=== PATIENT | female | born 1960 | race Caucasian/White ===

== ENCOUNTER 2020-08-24 10:35 | Outpatient (REF) | payer OTHER, SELFPAY | END 2020-08-24 10:36 | disposition home or self-care (01) | LOC: HO.HMGCLDS 10:35 | PROVIDERS: PCP Family Medicine; Visit Provider Internal Medicine | DX: Z20.828 Contact with and (suspected) exposure to other viral communicable diseases (principal) | CPT/HCPCS: 87635 ==

== ENCOUNTER 2023-10-01 07:21 | Outpatient (AMB) | payer OTHER, SELFPAY ==
--- NOTE | 2023-10-01 07:43 | A.OFFPC_ITS ---
Vital Signs 10/01/23 07:45 Weight 174 lb 2 oz BP 130/80 Blood Pressure Location Rt brachial Position Sitting Pulse 71 Pulse Source Pulse Oximeter Pulse Oximetry (%) 98 Oxygen Delivery Method Room Air Intake Visit Reasons: New patient PE Allergies phenytoin [From Dilantin] Adverse Reaction (Mild, Verified 10/01/23 07:46) dry heaving Medication List - Last Reconciled 10/01/23 by Savannah Salgado MD acetaminophen (Tylenol Extra Strength) 500 mg PO Q6H PRN carbamazepine 200 mg PO BID lamotrigine 200 mg PO BID Tobacco use date assessed: 10/01/23 Dental Screening Dental Screen Date: 10/01/23 Did you have a dental visit in the last 12 months?: Yes Did you have a dental problem in the last 6 months where you did not have access to dental care?: No Was dental information given to patient?: Patient has dentist HPI New patient PE HPI Details Pt presents for [employer] INS[employer] PE. PFSH Surgical History (Updated 10/01/23 @ 08:26 by Savannah Salgado MD) History of total hip replacement Family History (Updated 10/01/23 @ 08:15 by Savannah Salgado MD) Mother Family history of mental disorder Father Prostate CA Social History (Updated 10/01/23 @ 08:14 by Savannah Salgado MD) Household Members Other:: , disable Housing: House Patient Tobacco Use Status: Never used Tobacco e-Cigarette/Vaping Use: Never Used service: No Current occupational status: retired Cognitive needs: No Hearing needs: No Vision needs: Yes Questionnaire PHQ-9 Over the last 2 weeks, how often have you been bothered by any of the following problems? 1. Little interest or pleasure in doing things: not at all 2. Feeling down, depressed, or hopeless: not at all 3. Trouble falling or staying asleep, or sleeping too much: not at all 4. Feeling tired or having little energy: not at all 5. Poor appetite or overeating: not at all 6. Feeling bad about yourself - or that you are a failure or have let yourself or your family down: several days 7. Trouble concentrating on things, such as reading the newspaper or watching television: not at all 8. Moving or speaking so slowly that other people could have noticed. Or the opposite - being so fidgety or restless that you have been moving around a lot more than usual: not at all 9. Thoughts that you would be better off or of hurting yourself in some way: not at all Total score: 1 Depression Screening Interpretation: Negative Depression Screening Done: Yes 61443 - PHQ-9 Billing: Yes Source: Developed by Drs. Igor Dick, Michael Blake and colleagues, with an educational alesia from [employer]. AUDIT C Alcohol Use Questionnaire (AUDIT-C) 1. How often do you have a drink containing alcohol?: Monthly or less 2. How many drinks containing alcohol do you have on a typical day when you are drinking?: 1 or 2 3. How often do you have six or more drinks on one occasion?: Never Total Score: 1 Score Reviewed/Action Taken: No SHERON-7 AMB Questionnaire SHERON-7 Date SHERON - 7 assessed: 10/01/23 Feeling nervous, anxious, or on edge: 1 = Several days Not being able to stop or control worryin = Not at all Worrying too much about different things: 1 = Several days Trouble relaxin = Not at all Being so restless that it is hard to sit still: 0 = Not at all Becoming easily annoyed or irritable: 0 = Not at all Feeling afraid as if something awful might happen: 0 = Not at all Total SHERON-7 score (0-4 normal; 5-9 mild; 10-14 moderate; 15-21 severe): 2 Source: Developed by Drs. Igor Dick, Ofelia Grayson, Michael Mitchell and colleagues, with an educational alesia from [employer]. SHERON-7 Assessment Billing SHERON-7 Assessment Tool: SHERON-7 Assessment 46532 Review of Systems Const All systems reviewed & are unremarkable except as noted in HPI and below Reports no additional complaints Eyes Reports no additional complaints ENT Reports no additional complaints Card Reports no additional complaints Resp Reports no additional complaints GI Reports no additional complaints Reports no additional complaints Musc Reports no additional complaints Physical exam (Primary Care) Vital Signs: Last Vital Signs Pulse 71 10/01/23 07:45 BP 130/80 10/01/23 07:45 Pulse Ox 98 10/01/23 07:45 Oxygen Delivery Method Room Air 10/01/23 07:45 Tobacco/Smoking Status: Tobacco use Status Tobacco use date assessed 10/01/23 10/01/23 07:54 Patient Tobacco Use Status Never used Tobacco 10/01/23 08:14 e-Cigarette/Vaping Use Never Used 10/01/23 08:14 Depression Screening Interpretation: Negative Const General: no acute distress HENMT Head: Yes normal to inspection Ears: hearing grossly normal bilaterally General nose exam: Normal external nose present Face and sinus: Yes normal facial exam Mouth: Normal oral and palatal mucosa present Teeth and gingiva: dentition normal Throat: Yes posterior oropharynx normal Eyes General: appearance normal, both eyes and all related structures Neck Neck: Yes no lymphadenopathy and Yes supple Resp Effort & Inspection: normal respiratory effort Auscultation: clear to auscultation bilaterally Cardio Rhythm: regular rhythm Heart sounds: S1 normal heart sound present and S2 normal heart sound present GI Inspection: Yes normal to inspection Palpation (GI): Soft to palpation Percussion: Yes normal to percussion Auscultation: normal bowel sounds Assessment and Plan Assessment & Plan (1) Seizure: Comment: Dr. Ramon [facility] neurology Code(s): R56.9 - Unspecified convulsions Plan: f/u with neurology (2) Osteoarthritis of knees, bilateral: Comment: f/u [facility] Code(s): M17.0 - Bilateral primary osteoarthritis of knee (3) S/P hip replacement: Comment: LEFT HIP 2022 by [facility] Code(s): Z96.649 - Presence of unspecified artificial hip joint (4) Annual physical exam: Code(s): Z00.00 - Encounter for general adult medical examination without abnormal findings Plan: well balanced diet, regular exercise , schedule mammogram, pt will schedule OV with GI for colonoscopy (5) Hx of mammogram: Comment: 2019 [facility] Code(s): Z92.89 - Personal history of other medical treatment (6) Status post VNS (vagus nerve stimulator) placement: Comment: 2010 FOR SEIZURE CONTROL Code(s): Z96.89 - Presence of other specified functional implants Orders: Orders Comprehensive [place]. Panel Fast Today E55.9 - Vitamin D deficiency, unspecified, Z00.00 - Encounter for general adult medical examination without abnormal findings Complete Blood Count Auto Diff Today E55.9 - Vitamin D deficiency, unspecified, Z00.00 - Encounter for general adult medical examination without abnormal findings Lipid Panel Today E55.9 - Vitamin D deficiency, unspecified, Z00.00 - Encounter for general adult medical examination without abnormal findings TSH reflex Free T4 Today E55.9 - Vitamin D deficiency, unspecified, Z00.00 - Encounter for general adult medical examination without abnormal findings Vitamin D 25-OH Total Today E55.9 - Vitamin D deficiency, unspecified, Z00.00 - Encounter for general adult medical examination without abnormal findings UA CC w/rflx Micro + Cult Today E55.9 - Vitamin D deficiency, unspecified, Z00.00 - Encounter for general adult medical examination without abnormal findings Coding Level of Care Code New Pt Prev Care 40-64y(76454) Diagnoses Seizure R56.9 Osteoarthritis of knees, bilateral M17.0 S/P hip replacement Z96.649 Annual physical exam Z00.00 Hx of mammogram Z92.89 Status post VNS (vagus nerve stimulator) placement Z96.89 Additional Codes SHERON-7 Assessment Billing - SHERON-7 Assessment Tool: SHERON-7 Assessment 76354 ([id number])
[2023-10-01 07:45] VITALS: BP 130/80; PULSE 71; O2SAT 98
== END 2023-10-01 08:28 | disposition home or self-care (01) ==
PROVIDERS: PCP Family Medicine; Visit Provider Internal Medicine
DX: R56.9 Unspecified convulsions (principal); M17.0 Bilateral primary osteoarthritis of knee; Z96.649 Presence of unspecified artificial hip joint; Z00.00 Encounter for general adult medical examination without abnormal findings; Z92.89 Personal history of other medical treatment; Z96.89 Presence of other specified functional implants
CPT/HCPCS: 99386

== ENCOUNTER 2023-10-01 08:23 | Outpatient (REF) | payer OTHER, SELFPAY ==
[2023-10-01 11:16] LABS: MANUAL DIFF FLAG NO
[2023-10-01 11:27] LABS: Appearance Urine Clear; Color Urine Yellow; Glucose Urine UA Negative (Negative); Leukocyte Esterase Urine Trace (Negative); Nitrite Urine Negative (Negative); PH 5.5 (5.0-9.0); Specific Gravity - Urine 1.015 (1.005-1.025); UMIC TRIGGER UACC YES; Urine Blood Negative (Negative); Urine Ketones Negative (Negative); Urine Protein Negative (Neg-Trace)
[2023-10-01 11:36] LABS: Basophils Percent Auto 0.7 % (0-2); Hematocrit 35.7 % (37.0-47.0); Hemoglobin 11.1 g/dl (12.0-16.0); Imm Gran Abs Auto 0.02 X10*3/uL (0.00-0.03); Imm Gran Pct Auto 0.5 % (0.0-0.4); Lymphocytes Absolute Auto 1.1 X10*3/uL (1.2-4.9); Lymphocytes Percent Auto 24.8 % (20-40); Mean Corpuscular HGB Conc 31.1 g/dl (31.0-35.0); Mean Corpuscular Hemoglobin 29.5 pg (27.0-33.0); Mean Corpuscular Volume 94.9 fL (80.0-98.0); Mean Platelet Volume 10.4 fL (9.4-12.3); Monocytes Absolute Auto 0.5 X10*3/uL (0.1-1.2); Neutrophils Absolute Auto 2.7 x10*3/uL (2.0-8.3); Platelet Count 372 X10*3/uL (160-400); Red Blood Count 3.76 X10*6/uL (4.20-5.50); Red Cell Distribution Width 15.9 % (11.0-16.0); White Blood Count 4.3 X10*3/uL (4.8-10.8)
[2023-10-01 11:44] LABS: Alanine Aminotransferase 12 U/L (0-31); Albumin Level 3.9 g/dL (3.5-5.0); Alkaline Phosphatase 130 U/L (39-117); Anion Gap 13 (12-20); Aspartate Amino Transferase 15 U/L (5-31); Bilirubin Total 0.2 mg/dL (0.0-1.0); Blood Urea Nitrogen 9 mg/dL (9-16); Carbon Dioxide 26 mmol/L (22-29); Chloride 107 mmol/L (96-108); Cholesterol 224 mg/dL (<200); Estimated Glomerular Filt Rate > 60; Glucose Fasting 91 mg/dL (60-99); HDL Cholesterol 77 mg/dL (>40); LDL Cholesterol Calculated 131 mg/dL (<100); Sodium 142 mmol/L (135-145); Total Protein 6.7 g/dL (6.5-8.0); Triglycerides 80 mg/dL (<150)
[2023-10-01 12:03] LABS: TSH reflex Free T4 2.57 uIU/mL (0.32-4.0); Vitamin D 25-OH Total 18.8 ng/mL (>30)
[2023-10-01 12:04] LABS: Bacteria Urine None Seen (None Seen); RBC Urine 0-2 /HPF (0-2); Squamous Epithelial Cell Urine 0-2 /HPF (0-2); WBC Urine 0-5 /HPF (0-5)
== END 2023-10-01 08:24 | disposition home or self-care (01) ==
LOC: HO.HMGCLDS 08:23
PROVIDERS: PCP Internal Medicine; Visit Provider Internal Medicine
DX: Z00.00 Encounter for general adult medical examination without abnormal findings (principal); E55.9 Vitamin D deficiency, unspecified
CPT/HCPCS: 36415; 80053; 80061; 81001; 82306; 84443; 85025

== ENCOUNTER 2024-10-24 11:22 | Outpatient (AMB) | payer OTHER, SELFPAY ==
--- NOTE | 2024-10-24 11:25 | A.OFFPC_ITS ---
Vital Signs 10/24/24 11:32 Height 5 ft Weight 179 lb BMI 35.0 BP 136/86 Blood Pressure Location Rt brachial Position Sitting Pulse 79 Pulse Source Pulse Oximeter Pulse Oximetry (%) 97 Oxygen Delivery Method Room Air Intake Visit Reasons: PE Intake Note: Pt is here today for PE. Allergies phenytoin [From Dilantin] Adverse Reaction (Mild, Verified 10/24/24 11:26) dry heaving Medication List - Last Reconciled 10/24/24 by Savannah Salgado MD acetaminophen (Tylenol Extra Strength) 500 mg PO Q6H PRN carbamazepine 200 mg PO BID lamotrigine 200 mg PO BID Tobacco use date assessed: 10/24/24 Dental Screening Dental Screen Date: 10/24/24 Did you have a dental visit in the last 12 months?: Yes Did you have a dental problem in the last 6 months where you did not have access to dental care?: No Was dental information given to patient?: Patient has dentist HPI PE HPI Details Pt presents for PE. Pt's knee replacement surgery at [facility] was cancelled by anesthesiologist because of seizure. Patient's would like to have a 2nd opinion at [facility] Surgical History History of total hip replacement Family History Mother Family history of mental disorder Father Prostate CA Social History Household Members Other:: , disable Housing: House Patient Tobacco Use Status: Never used Tobacco e-Cigarette/Vaping Use: Never Used service: No Current occupational status: retired Cognitive needs: No Hearing needs: No Vision needs: Yes Questionnaire PHQ-9 Over the last 2 weeks, how often have you been bothered by any of the following problems? 1. Little interest or pleasure in doing things: not at all 2. Feeling down, depressed, or hopeless: not at all 3. Trouble falling or staying asleep, or sleeping too much: not at all 4. Feeling tired or having little energy: not at all 5. Poor appetite or overeating: not at all 6. Feeling bad about yourself - or that you are a failure or have let yourself or your family down: not at all 7. Trouble concentrating on things, such as reading the newspaper or watching television: not at all 8. Moving or speaking so slowly that other people could have noticed. Or the opposite - being so fidgety or restless that you have been moving around a lot more than usual: not at all 9. Thoughts that you would be better off or of hurting yourself in some way: not at all Total score: 0 Depression Screening Interpretation: Negative Depression Screening Done: Yes 42588 - PHQ-9 Billing: Yes Source: Developed by Drs. Igor Dick, Ofelia Grayson, Michale Mitchell and colleagues, with an educational alesia from [employer]. Thrive Questionnaire Date Thrive assessed: 10/24/24 I am a: Patient What is your living situation today?: I have a steady place to live Within the past 12 months, did the food you bought not last and you didn't have the money to get more?: Often true Within the past 12 months, did you worry whether your food would run out before you got money to buy more?: Often true Do you have trouble paying for medicines?: No Do you have trouble getting transportation to medical appointments?: No Do you have trouble paying your heating and electricity bill?: I choose not to answer this question Do you have trouble taking care of your child, family member or friend?: I choose not to answer this question Do you have trouble with day-to-day activities such as bathing, preparing meals, shopping, managing finances, etc.?: I choose not to answer this question Are you currently unemployed and looking for a job?: Yes Are you interested in more education?: I choose not to answer this question Please select the resources that you would like help with: None Currently or been in a relationship where the following occur: I choose not to answer THRIVE Score: 2 AUDIT C Alcohol Use Questionnaire (AUDIT-C) 1. How often do you have a drink containing alcohol?: Monthly or less 2. How many drinks containing alcohol do you have on a typical day when you are drinking?: 1 or 2 3. How often do you have six or more drinks on one occasion?: Never Total Score: 1 SHERON-7 AMB Questionnaire SHERON-7 Date SHERON - 7 assessed: 10/24/24 Feeling nervous, anxious, or on edge: 0 = Not at all Not being able to stop or control worryin = Not at all Worrying too much about different things: 0 = Not at all Trouble relaxin = Not at all Being so restless that it is hard to sit still: 0 = Not at all Becoming easily annoyed or irritable: 0 = Not at all Feeling afraid as if something awful might happen: 0 = Not at all Total SHERON-7 score (0-4 normal; 5-9 mild; 10-14 moderate; 15-21 severe): 0 Source: Developed by Drs. Igor Dick, Ofelia Grayson, Michael Mitchell and colleagues, with an educational alesia from [employer]. SHERON-7 Assessment Billing SHERON-7 Assessment Tool: SHERON-7 Assessment 34349 Review of Systems Const All systems reviewed & are unremarkable except as noted in HPI and below Reports no additional complaints Eyes Reports no additional complaints ENT Reports no additional complaints Card Reports no additional complaints Resp Reports no additional complaints GI Reports no additional complaints Reports no additional complaints Physical exam (Primary Care) Vital Signs: Last Vital Signs Pulse 79 10/24/24 11:32 BP 136/86 10/24/24 11:32 Pulse Ox 97 10/24/24 11:32 Oxygen Delivery Method Room Air 10/24/24 11:32 BMI result Body Mass Index 35.0 Tobacco/Smoking Status: Tobacco use Status Tobacco use date assessed 10/24/24 10/24/24 11:27 Patient Tobacco Use Status Never used Tobacco 10/24/24 11:27 e-Cigarette/Vaping Use Never Used 10/24/24 11:27 PHQ-9: PHQ-9 Score PHQ-9: Total score 0 10/24/24 11:27 Depression Screening Interpretation: Negative Thrive Assessment: Date of Thrive Assessment Date Thrive assessed 10/24/24 10/24/24 11:27 Currently or been in a relationship where the following occur: I choose not to answer Const General: no acute distress HENMT Head: Yes normal to inspection Ears: hearing grossly normal bilaterally Face and sinus: Yes normal facial exam Throat: Yes posterior oropharynx normal Eyes General: appearance normal, both eyes and all related structures Neck Neck: Yes no lymphadenopathy and Yes supple Resp Effort & Inspection: normal respiratory effort Auscultation: clear to auscultation bilaterally Cardio Rhythm: regular rhythm Heart sounds: S1 normal heart sound present and S2 normal heart sound present GI Inspection: Yes normal to inspection Palpation (GI): Soft to palpation Percussion: Yes normal to percussion Auscultation: normal bowel sounds Coding Level of Care Code Est Pt Prev Care 40-64y(31245) Diagnoses Hx of colonoscopy Z98.890 Osteoarthritis of knees, bilateral M17.0 Seizure R56.9 Hyperlipemia E78.5 Annual physical exam Z00.00 Additional Codes SHERON-7 Assessment Billing - SHERON-7 Assessment Tool: SHERON-7 Assessment 71760 ([id number]) PHQ-9 - 93817 - PHQ-9 Billing: Yes ([id number]) Assessment & Plan Assessment & Plan (1) Hx of colonoscopy: Comment: 2018 Dr. Ferraro , q 5 yrs Code(s): Z98.890 - Other specified postprocedural states Category: Surgical Plan: due for colonoscopy (2) Osteoarthritis of knees, bilateral: Code(s): M17.0 - Bilateral primary osteoarthritis of knee Category: Medical Plan: 2 nd opinion at [facility] (3) Seizure: Comment: Dr. Ramon [facility] neurology Code(s): R56.9 - Unspecified convulsions Category: Medical Plan: refer to [facility] for 2nd opinion (4) Hyperlipemia: Code(s): E78.5 - Hyperlipidemia, unspecified Category: Medical Plan: Continue low-cholesterol diet (5) Annual physical exam: Code(s): Z00.00 - Encounter for general adult medical examination without abnormal findings Category: Medical Plan: Well-balanced diet regular physical activity discussed with the patient referred for colonoscopy and mammogram Orders: Orders Comprehensive [place]. Panel Fast Today E55.9 - Vitamin D deficiency, unspecified, E78.5 - Hyperlipidemia, unspecified, Z00.00 - Encounter for general adult medical examination without abnormal findings IRON PROFILE Today E55.9 - Vitamin D deficiency, unspecified, E78.5 - Hyperlipidemia, unspecified, Z00.00 - Encounter for general adult medical examination without abnormal findings Complete Blood Count Auto Diff Today E55.9 - Vitamin D deficiency, unspecified, E78.5 - Hyperlipidemia, unspecified, Z00.00 - Encounter for general adult medical examination without abnormal findings Lipid Panel Today E55.9 - Vitamin D deficiency, unspecified, E78.5 - Hyperlipidemia, unspecified, Z00.00 - Encounter for general adult medical examination without abnormal findings TSH reflex Free T4 Today E55.9 - Vitamin D deficiency, unspecified, E78.5 - Hyperlipidemia, unspecified, Z00.00 - Encounter for general adult medical examination without abnormal findings Vitamin D 25-OH Total Today E55.9 - Vitamin D deficiency, unspecified, E78.5 - Hyperlipidemia, unspecified, Z00.00 - Encounter for general adult medical examin ation without abnormal findings Vitamin B12 and Folate Today E55.9 - Vitamin D deficiency, unspecified, E78.5 - Hyperlipidemia, unspecified, Z00.00 - Encounter for general adult medical examination without abnormal findings MM screening mammo BI Today E55.9 - Vitamin D deficiency, unspecified, E78.5 - Hyperlipidemia, unspecified, Z00.00 - Encounter for general adult medical examination without abnormal findings, Z12.31 - Encounter for screening mammogram for malignant neoplasm of breast Referrals Gastroenterology Referral Z00.00 - Encounter for general adult medical examination without abnormal findings, Z98.890 - Other specified postprocedural states Orthopedics Referral M17.0 - Bilateral primary osteoarthritis of knee Neurology Referral R56.9 - Unspecified convulsions, Z96.89 - Presence of other specified functional implants
[2024-10-24 11:32] VITALS: BP 136/86; PULSE 79; O2SAT 97; BMI 35.0
--- OUTSIDE RECORDS SUMMARY | 2024-10-29 07:55 | XMS_ITS | Continuity of Care Document ---
Author Organization Pre [facility] Address [address] [place] [address]- Care Team Providers Care Missile And Missile Checkout Technician Name Role Phone Savannah Salgado MD Primary Care Physician [facility] [id number] Date(s): 10/01/24 - 10/08/24 Pre Op [facility] [address] [place] [id number] Attending Physician: Deni MOLINA, Dangelo Carrillo Referring Physician: Jennifer MOLINA, Kaushik Barnett Encounter Type: Office Visit Allergies, Adverse Reactions, Alerts Substance Criticality Severity Reaction Reaction Severity Status gabapentin blurry vision, slurred speech Active Dilantin vomiting Active Immunizations Given and Recorded Vaccine Date Status Refusal Reason influenza virus vaccine, inactivated 1 12/01/21 Gi vinod influenza virus vaccine, inactivated 2 09/13/17 Gi vinod influenza virus vaccine, inactivated 09/21/16 Give n SARS-CoV-2 (COVID-19) mRNA-1273 vaccine 11/16/21 R ecorded SARS-CoV-2 (COVID-19) Ad26 vaccine 02/21/21 Record ed Influenza Virus Vaccine (oldterm) 09/01/20 Recorde d tetanus/diphtheria/pertussis, acel(Tdap) 02/24/16 Given 1Result Comment: [facility]: [id number] 2Result Comment: [09/13/2017] [facility]# [id number] Medications acetaminophen 325 mg oral tablet 650 mg, By Mouth, Every 6 hours, may take OTC not to exceed 3000 mg/day, Refills 0, Maintenance, 09/05/23 8:34:00 AM EDT, Partial fill upon patient request if the prescription is for a schedule II opioid drug. Start Date: 09/05/23 Status: Ordered Repeat number: 1 Aleve Back and Muscle Pain 220 mg oral tablet 1 tablet = 220 mg, By Mouth, Every 8 hours, PRN as needed for pain, # 40 tablet, 0 Refills, Maintenance, 10/01/24 9:25:00 AM EST, Tablet, Partial fill upon patient request if the prescription is for a schedule II opioid drug. Start Date: 10/01/24 Status: Ordered Quantity: 40.0 Unit: tablet Repeat number: 1 carBAMazepine 200 mg oral tablet, extended release 1 tablet, By Mouth, 2 times a day, # 180 tablet, 3 Refills, Maintenance, 10/07/24 11:00:00 AM EST, [id number], 156, cm, 10/01/24 13:23:00 EST, Height, 80, kg, 10/07/24 6:35:00 EST, Dry Weight Start Date: 10/07/24 Status: Ordered Quantity: 180.0 Unit: tablet Repeat number: 1 diazePAM 20 mg/dose nasal spray 1 sprays, Nares, Both, Once, may repeat once after at least 4 hours if needed, # 2 each, 4 Refills,Soft Stop, 07/09/23 10:36:00 AM EDT, [place], [id number], Partial fill upon patient request ifthe prescription is for a schedule II opioid drug., 154.6, cm, 07/09/23 10:07:00 EDT, Height Start Date: 07/09/23 Status: Ordered Quantity: 2.0 Unit: each Repeat number: 5 lamotrigine 200 mg oral tablet 1 tablet, By Mouth, 2 times a day, # 180 tablet, 3 Refills, Maintenance, 08/05/24 3:18:00 PM EDT, [id number], 156, cm, 09/05/23 11:24:00 EDT, Height, 78, kg, 09/04/23 17:38:00 EDT, Dry Weight Start Date: 08/05/24 Status: Ordered Quantity: 180.0 Unit: tablet Repeat number: 1 Problem List Condition Confirmation Course Effective Dates Status H ealth Status Informant Bunion of left foot Confirmed Active Hemorrhoids Confirmed Active Left hip pain Confirmed Active Obese class I Confirmed Active Class 1 obesity with body mass index (BMI) of 32.0 to 32.9 in adult Confirmed Active Osteoarthritis of left hip Confirmed Active Osteoarthritis of right knee Confirmed Active Refractory epilepsy Confirmed Active Vital Signs Most recent to oldest [Reference Range]: 1 Height 156 cm (10/01/24 9:14 AM) Weight 80.3 kg (10/01/24 9:14 AM) Oxygen Saturation [94-100 %] 99 % (10/01/24 9:14 AM) Pulse Rate [55-90 bpm] 80 bpm (10/01/24 9:14 AM) Body Mass Index [18.5-24.99 kg/m2] 33 kg /m2 *>HHI* (10/01/24 9:14 AM) Blood Pressure [90-138/55-84 mm Hg] 140/ 74mm Hg *H* (10/01/24 9:14 AM) Respiratory Rate [16-30 br/min] 16 br/mi n (10/01/24 9:14 AM) Blood pressure sites Arm, left (10/01/24 9:14 AM) Weight Obtained Via Standing scale (10/01/24 9:14 AM) Social History Social History Type Response Smoking Status Never (less than 100 in lifetime) entered on: 08/24/23 Sex Sex Representation Female (finding) EKG study * Event Display: ECG 12-Lead Authored Date: Please click on pdf link to open report * Event Display: ECG 12-Lead Authored Date: Ventricular Rate: 67 BPM Atrial Rate: 67 BPM P-R Interval: 134 ms QRS Duration: 80 ms Q-T Interval: 382 ms QTC Calculation(Bazett): 403 ms P Muir: 52 degrees R Muir: 27 degrees T Muir: 47 degrees Normal sinus rhythm Normal ECG When compared with ECG of 24-AUG-2023 10:25, No significant change was found Confirmed by ANGEL MOONEY MD ([id number]) on 10/01/2024 10:45:23 AM [place]: ANGEL MOONEY MD Patient Care team information Care Team Personnel Name: Savannah Salgado MD Position: [facility] Physician - Primary Care Member Role: PCP Address: [address] [place] [address]- Telecom: Name: Telma Rahman RN Position: [facility] RN Member Role: Primary Care Nurse Name: Crescencio Weller RN Position: [facility] RN Member Role: Primary Care Nurse Care Team Related Persons Name: JADIEL CHADWICK Name: SANJUANITA LUBIN Insurance Providers Guarantor name: JOSUE CHADWICK Health Plan Information #: 1 Payer: [facility] Member Number: [id number] Policy Number: NA Group Number: [id number] Health Plan Information #: 2 Payer: [facility] Member Number: [id number] Policy Number: NA Group Number: [id number]
--- OUTSIDE RECORDS SUMMARY | 2024-10-29 07:55 | XMS_ITS | Continuity of Care Document ---
Author Organization [facility] y [address], [address] [place] [address]- Care Team Providers Care Wax Engraver Name Role Phone Savannah Salgado MD Primary Care Physician Encounter [facility] [place] Date(s): 10/01/24 - 10/08/24 [facility] [address] [place] [address] Drive [address] [place], [place] [address] Attending Physician: Igor Smith MD Referring Physician: Ángel Ramon MD Encounter Type: Office Visit Allergies, Adverse Reactions, [...] d tetanus/diphtheria/pertussis, acel(Tdap) 02/24/16 Given 1Result Comment: [facility]: [id number] 2Result Comment: [09/13/2017] [facility]# [id number] Medications acetaminophen 325 mg oral tablet 650 [...] 3 Refills, Maintenance, 10/07/24 11:00:00 AM EST, [facility], 156, cm, 10/01/24 13:23:00 EST, Height, 80, kg, 10/07/24 6:35:00 EST, Dry Weight Start Date: 10/07/24 Status: Ordered Quantity: 180.0 Unit: tablet Repeat number: 1 diazePAM 20 mg/dose nasal spray 1 sprays, Nares, Both, Once, may repeat once after at least 4 hours if needed, # 2 each, 4 Refills,Soft Stop, 07/09/23 10:36:00 AM EDT, [place], [facility]/pharmacy #[id number], Partial fill upon patient request ifthe prescription is for a schedule II opioid drug., 154.6, cm, 07/09/23 10:07:00 EDT, Height Start Date: 07/09/23 Status: Ordered Quantity: 2.0 Unit: each Repeat number: 5 lamotrigine 200 mg oral tablet 1 tablet, By Mouth, 2 times a day, # 180 tablet, 3 Refills, Maintenance, 08/05/24 3:18:00 PM EDT, [facility], 156, cm, 09/05/23 11:24:00 EDT, Height, 78, [...] [Reference Range]: 1 Height 156 cm (10/01/24 1:23 PM) Weight 80.3 kg (10/01/24 1:23 PM) Body Mass Index [18.5-24.99 kg/m2] 33 kg /m2 *>HHI* (10/01/24 1:23 PM) Social History Social History Type Response Smoking Status Never (less than 100 in lifetime) entered on: 08/24/23 Sex Sex Representation Female (finding) Patient Care team information Care Team Personnel Name: Savannah Salgado MD Position: [facility] Physician - Primary Care Member Role: PCP Address: [address] [place] [address] Telecom: Name: Telma Rahman RN Position: [facility] RN Member Role: Primary Care Nurse Name: Crescencio Weller RN Position: [facility] RN Member Role: Primary Care Nurse Care Team Related Persons Name: JADIEL CHADWICK Name: SANJUANITA LUBIN Insurance Providers Guarantor name: JOSUE FARRUKH Health Plan Information #: 1 Payer: [facility] Member Number: [id number] Policy Number: NA Group Number: [id number] Health Plan Information #: 2 Payer: [facility] Member Number: [id number] Policy Number: NA Group Number: NA
--- OUTSIDE RECORDS SUMMARY | 2024-10-29 07:55 | XMS_ITS | Continuity of Care Document ---
Author Organization [facility] Address [address] [place] [address]- Care Team Providers Care Technical Administrator Name Role Phone Savannah Salgado MD Primary Care Physician [place] [facility] [place] 09/23/24 - 10/23/[address] [address]- Attending Physician: Elva Alvarez Admitting Physician: Elva Alvarez Referring Physician: AdmtrElva Encounter Type: Triage Allergies, Adverse Reactions, Alerts Substance Criticality Severity [...] d tetanus/diphtheria/pertussis, acel(Tdap) 02/24/16 Given 1Result Comment: [facility]: [id number] 2Result Comment: [09/13/2017] [facility]# [id number] Medications acetaminophen 325 mg oral tablet 650 [...] 3 Refills, Maintenance, 10/07/24 11:00:00 AM EST, [facility], 156, cm, 10/01/24 13:23:00 EST, Height, 80, kg, 10/07/24 6:35:00 EST, Dry Weight Start Date: 10/07/24 Status: Ordered Quantity: 180.0 Unit: tablet Repeat number: 1 diazePAM 20 mg/dose nasal spray 1 sprays, Nares, Both, Once, may repeat once after at least 4 hours if needed, # 2 each, 4 Refills,Soft Stop, 07/09/23 10:36:00 AM EDT, [place], [facility]/pharmacy #[id number], Partial fill upon patient request ifthe prescription is for a schedule II opioid drug., 154.6, cm, 07/09/23 10:07:00 EDT, Height Start Date: 07/09/23 Status: Ordered Quantity: 2.0 Unit: each Repeat number: 5 lamotrigine 200 mg oral tablet 1 tablet, By Mouth, 2 times a day, # 180 tablet, 3 Refills, Maintenance, 08/05/24 3:18:00 PM EDT, [facility], 156, cm, 09/05/23 11:24:00 EDT, Height, 78, [...] knee Confirmed Active Refractory epilepsy Confirmed Active Social History Social History Type Response Smoking Status Never (less than 100 in lifetime) entered on: 08/24/23 Sex Sex Representation Female (finding) Patient Care team information Care Team Personnel Name: Savannah Salgado MD Position: [facility] Physician - Primary Care Member Role: PCP Address: [place] [address]- Telecom: Name: Telma Rahman RN Position: [facility] RN Member Role: Primary Care Nurse Name: Crescencio Weller RN Position: [facility] RN Member Role: Primary Care Nurse Care Team Related Persons Name: JADIEL CHADWICK Name: SANJUANITA LUBIN Insurance Providers Guarantor name: JOSUE CHADWICK Health Plan Information #: 1 Payer: [facility] Member Number: NA Policy Number: NA Group Number: NA
--- OUTSIDE RECORDS SUMMARY | 2024-10-29 07:55 | XMS_ITS | Patient Health Record ---
Author Organization [facility] Address [address] [place] [address] Support Name Relationship Address Phone JADIEL CHADWICK Emergency Contact [address] [place]KKI Hayes [phone] JOSUE CHADWICK Guarantor Unknown Care Team Providers Care Occupational Hygienist Name Role Phone Savannah Salgado MD Primary Care Provider Igor Post [phone] ALLERGIES Allergen (clinical drug ingredient) Drug/Non Drug Allergy documented on EMR Reaction Allergy Type Onset Date Status phenytoin Dilantin Unknown Drug Allergy Active REASON FOR REFERRAL No Information MEDICATIONS Medication SIG (Take, Route, Fr equency, Duration) Notes Start Date End Date Status lamoTRIgine Active Carbatrol 200mg bid Acti ve MoviPrep 100 GM as directed Orally a s directed for 1 dose 08/12/2013 Active SOCIAL HISTORY Sex Assigned At : Social History Observation Description Sex Assigned At Unknown PROBLEMS Problem Type ICD Code Onset Dates Problem Status W/U Status Risk SNOMED Code Notes Problem Blood in stool (578.1) Active confirmed Blood in stool (293300483) Problem Constipation (564.00) Active confirmed Constipation (08639355) Problem Heme positive stool (792.1) Active confirmed Feces contents abnormal (793195010) PLAN OF TREATMENT Future Test Test Name Order Date COLONOSCOPY 08/12/2013 Next Appt Details Provider Name:Igor Ferraro , 02/17/2025 01:20:00 PM, [address], [address], [place], [address], Insurance Providers Payer Name Payer Address Payer Phone Subscriber Number Group Number Insured Name Patient Relationship to Insured Coverage Start Date Coverage End Date [employer] ([employer]) [address] [place] [id number] JOSUE CHADWICK Self - patient is the insured MEDICAL (GENERAL) HISTORY Medical History History ICD Code Denies UT,DM,CVA,Lung disease,renal dise ase Epilepsy--still active-gener alized or partial seizures---once or twice a month Surgical History Surgery Date(Month/Year) brain surgery--at [facility]-put electrodes in the brain to do tests for the epilepsy 06/2011 Surgery for seizures-Vagus nerve stimula tor in 2000
--- OUTSIDE RECORDS SUMMARY | 2024-10-29 07:55 | XMS_ITS | Continuity of Care Document ---
Author Organization [facility] Address [address] [place] [address], [address] Floor, [address] [place] [address]- Care Team Providers Care Director Of Institutional Sales Name Role Phone Savannah Salgado MD [id number] [address] [facility] [address] Floor, [address] [place] [address] Attending Physician: Ángel Ramon MD Admitting Physician: Ángel Ramon MD Encounter Type: Pre-OutPatient One Time Allergies, Adverse Reactions, Alerts Substance Criticality Severity [...] tetanus/diphtheria/pertussis, acel(Tdap) 02/24/16 Given 1Result Comment: [facility]: [id number] 2Result Comment: [09/13/2017] [facility]# [id number] Medications acetaminophen 325 mg oral tablet 650 [...] day, # 180 tablet, 3 Refills, Maintenance, 07/09/23 10:45:00 AM EDT, [facility]/pharmacy #[id number], 154.6, cm, 07/09/23 10:07:00 EDT, Height Start Date: 07/09/23 Stop Date: 07/03/24 Status: Ordered Quantity: 180.0 Unit: tablet Repeat number: 4 diazePAM 20 mg/dose nasal spray 1 sprays, Nares, Both, Once, may repeat once after at least 4 hours if needed, # 2 each, 4 Refills,Soft Stop, 07/09/23 10:36:00 AM EDT, [place], [facility]/pharmacy #[id number], Partial fill upon patient request ifthe prescription is for a schedule II opioid drug., 154.6, cm, 07/09/23 10:07:00 EDT, Height Start Date: 07/09/23 Status: Ordered Quantity: 2.0 Unit: each Repeat number: 5 lamotrigine 200 mg oral tablet 1 tablet, By Mouth, 2 times a day, # 180 tablet, 3 Refills, Maintenance, 08/05/24 3:18:00 PM EDT, [facility], 156, cm, 09/05/23 11:24:00 EDT, Height, 78, [...] Team Personnel Name: Savannah Salgado MD Position: [facility] Physician - Primary Care Member Role: PCP Address: [facility] [address] Telecom: Name: Telma Rahman RN Position: [facility] RN Member Role: Primary Care Nurse Name: Crescencio Weller RN Position: [facility] RN Member Role: Primary Care Nurse Care Team Related Persons Name: JADIEL CHADWICK Name: SANJUANITA LUBIN Insurance Providers Guarantor name: JOSUE CHADWICK Health Plan Information #: 1 Payer: [facility] Member Number: [id number] Policy Number: NA Group Number: [id number] Health Plan Information #: 2 Payer: [facility] Member Number: [id number] Policy Number: NA Group Number: NA
--- OUTSIDE RECORDS SUMMARY | 2024-10-29 07:55 | XMS_ITS | Data Portability ---
Author Organization [place] - Mirza Laureano [facility], [facility] Address [address] [place] [address] Care Team Providers Care Woodwind Reeds Cutter Name Role Phone VIKI NG Primary Care Provider [phone] Assessment Encounter Date Assessment Date Assessment LastModified by Organization Details LastModified Time 08/04/2024 08/04/2024 Chief complaint: Right knee pain. History of present illness: The patient is a 63-year-old female presenting with a chief complaint of right knee pain. The patient has tried rest, NSAIDS, physical therapy, corticosteroid injection, exercise, and activity modification but continues to have pain. Physical examination: The patient is in no acute distress. She is alert and oriented x3. She has nonlabored breathing. Her hearing is intact to spoken word. Her extra-ocular motion is intact. Right lower extremity - Alignment: varus Effusion: moderate Range of motion: 5-105 Varus/valgus stress testing: moderate laxity Crepitus: slight Skin is intact without erythema, induration, or ecchymosis. The patient has full painless range of motion at the ipsilateral hip. Sensation is intact to light touch over the dorsum of the foot, in the first webspace, and over the plantar aspect of the foot. The patient has 5/5 strength with plantarflexion of the ankle, dorsiflexion of the ankle, plantarflexion of the great toe, and dorsiflexion of the great toe. The foot is warm and well-perfused with brisk capillary refill. There is a 2+ dorsalis pedis pulse. Radiographs: 4 views of the right knee including bilateral knee AP, bilateral knee Perez, right knee lateral, and bilateral knee merchant views were obtained and evaluated in the office today. X-rays demonstrate that the patient has end-stage osteoarthritis of the right knee with joint space narrowing, subchondral sclerosis, and osteophyte formation. There is no evidence of fracture. Assessment and Plan: The patient is a 63-year-old female presenting with a chief complaint of right knee pain. She demonstrates end-stage osteoarthritis of her right knee on radiographs. At this point, the patient has failed non-operative treatment of her right knee osteoarthritis. The patient has tried NSAIDs, rest, exercise, physical therapy, corticosteroid injection, and activity modification but continues to have worsening pain for greater than 3 months. A thorough discussion was had with the patient regarding both nonsurgical and surgical interventions for treatment of right knee osteoarthritis. Since the patient has experienced worsening pain despite conservative treatment, the patient wished to proceed with surgery. The nature of knee replacement surgery, the potential risks, benefits, complications, the magnitude of the surgery, the intensity of postoperative recovery, and the elective nature of a right total knee arthroplasty were discussed at length. Risks and complications discussed included postoperative stiffness, infection requiring further surgery or potential removal of implants, persistent infection requiring possible amputation, wound healing complications, instability, dislocation, need for additional surgery or revision arthroplasty, aseptic loosening, extensor mechanism disruption, implant failure, injury to nerve, foot drop, numbness, numbness over the lateral knee, injury to blood vessel, bleeding, hematoma, need for transfusion, fracture, heart attack, stroke, deep vein thrombosis, pulmonary embolism, and even intraoperative or postoperative . Despite these risks, the patient still wished to proceed with surgery. The patient was instructed that I am happy to meet again at any time in order to review any additional questions or concerns the patient might have. Since the patient wishes to proceed, we will schedule the patient for a right total knee arthroplasty. The patient will require clearance from a medical doctor prior to surgery. The next planned follow-up is at the preoperative history and physical appointment. [email or web address] Not available 08/04/2024 11:37:13 09/08/2024 09/08/2024 Assessment: Patient presents with symptoms that are consistent with knee OA. Demonstrates good understanding of home program, post-operative mechanics for gait and stairs, and expectations following surgery. Plan: Discharge patient to knee [facility]. Follow up with patient post-operatively. [email or web address] Not available 09/08/2024 08:22:17 10/02/2024 10/02/2024 PRIMARY DIAGNOSI S: Osteoarthritis of the right knee. REASON FOR ADMISSION: The patient is being admitted for right total knee arthroplasty by Dr. Rodriguez on 10/07/2024. HISTORY OF PRESENT ILLNESS: Ms. Rosales is a very pleasant 63-year-old female accompanied today with her with complaints of right sided knee pain. She is well known to the practice as she previously had her left hip replaced by Dr. Rodriguez in 08/2023. She is very happy with the outcome of her left hip and now reports increasing pain to her right knee. The patient has a known longstanding history of right knee osteoarthritis, which has failed conservative management and she is now ready to pursue a right total knee by Dr. Rodriguez on 10/07/2024. PAST MEDICAL HISTORY: 1. Osteoarthritis of the right knee. 2. Seizure disorder. She has refractory epilepsy, status post vagus nerve stimulator. She states the majority of her seizures happen at night. She states her last one was about a month ago. Signs of her seizure include teeth smacking, tongue and arm flailing, occasionally she will have stiff arms and stiff legs, sometimes she sleep walks. The seizure usually lasts about 3 minutes. Things that bring her seizures on are stressors such as feeling tired. Flashing lights or pain has also been an issue in the past. She is currently well managed on Lamictal and carbamazepine. The patient's reports that when she is coming to, it is helpful for her to be asked the same 3 questions which is what is her 's name, where does she live and what is his favorite hockey team. 3. Obesity with a BMI of 33.4. 4. Hemorrhoids. 5. Bunions of the left foot. 6. 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 PAST SURGICAL HISTORY: 1. She had a left total hip by Dr. Rodriguez in 08/2023. She was discharged home on postoperative day #1 without any issues. 2. Vagal nerve stimulator implantation. 3. Craniotomy in 2010. MEDICATIONS: Current list of medications includes 1. Carbamazepine 200 mg twice a day, which she will take prior to arrival to the hospital. 2. Lamictal 200 mg twice a day, which she will take prior to arrival to the hospital. ALLERGIES: DILANTIN CAUSES VOMITING AND DRY HEAVES. GABAPENTIN CAUSES BLURRED VISION AND SLURRED SPEECH. SOCIAL HISTORY: She is . Her , Jamie is here with her today. She reports a very, very rare alcoholic beverage. Denies any tobacco or illicit drug use. PHYSICIANS: The patient's primary care physician is Almaz Barrios NP and her neurologist is Dr. Ramon. REVIEW OF SYSTEMS: The patient's 12-point review of systems is negative except as in HPI and past medical history. PHYSICAL EXAMINATION: VITAL SIGNS: Weight is 178 pounds. GENERAL: Alert and oriented. Normal insight, affect, and grooming. SKIN: Intact without rash or lesions. Nails without clubbing or cyanosis. HEENT: Normocephalic. Conjunctivae pink. Sclerae are anicteric. CHEST: Lungs are clear to auscultation bilaterally and breathing is unlabored. CARDIOVASCULAR: Heart has a regular rate and rhythm with normal S1, S2. No murmurs, rubs or gallops appreciated. ABDOMEN: Soft, nontender. EXTREMITIES: Lower extremities, right knee skin is intact without erythema, induration, or ecchymosis. She has a varus alignment with moderate effusion. Range of motion is 5-105. She has moderate laxity with varus/valgus stress testing. Calves are supple and nontender. Ankle motion is satisfactory. Pedal pulses palpable bilaterally and skin about the feet is intact. PREOPERATIVE DIAGNOSTIC DATA: Orthopedic x-rays demonstrate end-stage osteoarthritis of the right knee. There is kbfr-dy-dvyw articulation, subchondral sclerosis and osteophyte formation. EKG reads sinus rhythm at 67 beats per minute. LABORATORY DATA: CBC, PTT, INR, BUN, creatinine and electrolytes all within normal limits. Hemoglobin A1c is 5.3. ASSESSMENT AND PLAN: The patient has advanced osteoarthritis of the right knee and is now scheduled for right total knee arthroplasty by Dr. Rodriguez on 10/07/2024. She was seen by the med consult program for preoperative clearance, who considered the patient's risk for major adverse cardiac events as low. She is also considered a low pulmonary risk. Due to her seizure disorder, triggers should be avoided such as strong lights and good pain control. She should take her seizure medicines prior to surgery. Due to her implanted vagal nerve stimulator, intraoperative electrocautery safety protocol is recommended. The patient will receive IV TXA and be placed on aspirin postoperatively for DVT prophylaxis. Discharge plans will be to home with services. The patient is not a candidate for same day discharge. She will not receive tramadol due to her cocurrent use of carbamazepine for seizure disorder. She has been counseled regarding the risks and benefits of the proposed procedure. Her questions have been answered and she acknowledges understanding. The patient wishes to proceed with surgery. CONTACTS: Her , Jamie with phone number [phone]. [email or web address] Not available 10/02/2024 12:36:09 Plan of Treatment Reminders Order Date Submit Date Provider Last Modified By Organization Details Last Modified Time Details Appointments None recorded. Lab None recorded. Referral None recorded. Procedures None recorded. Surgeries None recorded. Imaging XR, knee, 4 or more view - 205 rt knee 4v 2023 024 Myranda [facility], [address], [facility] [address], [place], [address], 08:27:54 Medication Orders aspirin 325 mg tablet,margarita yed release 2023 024 jose [email or web address] [id number], [address] [facility] [place], [address], 4 12:03:30 Colace 100 mg capsule 2023 024 jose luis [id number], [address] [facility] [place], [address], 4 12:03:30 Celebrex 200 mg capsule 2023 024 jose luis [id number], [address] [facility], [address], 4 12:03:30 pantoprazol e 40 mg tablet,margarita yed release 2023 024 jose luis [id number], [address] [facility], [address], 4 12:03:30 Patient Targets Encounter Date Encounter Id Patient Goals Patient Target Last Modified By Organization Details Last Modified Time 09/08/2024 [id number] [facility] Compliance [id number] Not available Not available Not available Patient InstructionsNo instructions recorded. Reason for Referral None Reported. Results Created Date Observation Date Name Description Value Unit Range Abnormal Flag Note LastModifiedBy Organization Detail LastModifiedTime 08/04/20 24 08/04/2024 XR, knee, 4 or more view http:/ [email or web address] ?Encry pted=s hAaTro YD8dLq bEUv6g %2BXZw aYqtaq 0bqfl% 2Fg9IQ a4ajBk vP9nXo QUaueC m3YtLR FvZlgJ JJ8Orange HZtai3 4h9513 AC0Kqa nmAWaq kKiQtr MwF INTERFACE [facility] [address], [place], [address], 08/04/2024 12:03:38 08/04/20 24 08/04/2024 XR, knee, 4 or more view [email or web address] ?Encry pted=s hAaTro YD8dLq bEUv6g %2BXZw aYqtaq 0bqfl% 2Fg9IQ a4ajBk vP9nXo QUaueC m3YtLR FvZlgJ JJ8Orange HZtai3 3h5560 AC0Kqa nmAWaq kKiQtr MwF INTERFACE [facility] [address], [place], [address], 08/04/2024 12:03:40 Result Notes None recorded. Problems Name Problem SNOMED Code Status Onset Date Resolution Date Notes Provider Name and Address Organization Details Recorded Time No complaints 464187719 Active Status : 'A'; Not Available [facility] 09:20:42 Problem Notes None recorded. Procedures Surgical History Date Name Laterality Status Provider Name and Address Organization Details Recorded Time 4 80520 Therapeutic Exercise (1:1) completed Dayana Escoto, PT [address], [place], [address], [facility] 09/08/2024 18:50:58 86714: Low complexity PT Eval completed Dayana Escoto, PT [address], [place], [address], [place] [facility] 09/08/2024 18:51:01 Imaging Results Imaging Date Name Status LastModified by Organiz ation Details LastModified Time 08/04/2024 XR, knee, 4 or more view completed INTERFACE [facility] [address], [place], [address], 08/04/2024 12:03:38 08/04/2024 XR, knee, 4 or more view completed INTERFACE [facility] [address], [place], [address], 08/04/2024 12:03:40 Procedure Notes None recorded. Medical Equipment None Reported. Allergies No known drug allergies Medications Name Sig Start Date Stop Date Status Note LastModified by Organization Details LastModified Time celecoxib 200 mg capsule TAKE 1 CAPSULE EVERY DAY BY ORAL ROUTE DIRECTED FOR 33 DAYS. active Not Available Not Available No t Available amoxicillin 500 mg capsule TAKE 4 CAPSULES BY MOUTH 1 HOUR PRIOR TO PROCEDURE active Not Available Not Available No t Available lamotrigine 200 mg tablet TAKE 1 TABLET BY MOUTH TWICE A DAY active Not Available Not Available No t Available aspirin 325 mg tablet,margarita yed release TAKE 1 TABLET BY MOUTH TWICE A DAY DIRECTED FOR 30 DAYS active Not Available Not Available No t Available carbamazepi ne ER 200 mg tablet,exte nded release,12 hr TAKE 1 TABLET BY MOUTH TWICE A DAY active Not Available Not Available No t Available pantoprazol e 40 mg tablet,margarita yed release TAKE 1 TABLET BY MOUTH EVERY DAY DIRECTED active Not Available Not Available No t Available docusate sodium 100 mg capsule TAKE 1 CAPSULE BY MOUTH TWICE A DAY DIRECTED FOR 30 DAYS NEEDED FOR CONSTIPAT ION active Not Available Not Available No t Available oxycodone 5 mg tablet TAKE 1 TO 2 TABLETS BY MOUTH EVERY 4 HOURS NEEDED FOR SEVERE PAIN 08/04 completed Not Available Not Available Not Available Vitals Date Recorded Body height Body mass index (BMI) Body weight Provider Name and Address Organization Details Last Updated DateTime 08/04/2024 154.94 cm 33.4 kg/m2 95244.85 g JONATHAN PERALTA [facility] 08/04/2024 11:03:05 Date Recorded Body height Body mass index (BMI) Body weight Provider Name and Address Organization Details Last Updated DateTime 10/02/2024 154.94 cm 33.6 kg/m2 55147.44 g RAQUEL AGUIRRE [facility] 10/02/2024 08:26:11 Social History None recorded. Functional Status None recorded. Mental Status None recorded. Family History Nothing Reported. Medical History No medical history recorded. Gynecological HistoryNo gynecological history recorded. Obstetrics History GPAL:G 0 P 0 0 0 0 Past Encounters Encounter ID Performer Location Encounter Start Date Encounter Closed Date Diagnosis/Indication Diagnosis SNOMED-CT Code Diagnosis ICD10 Code [id number] [facility] [address] [place] [address] 08/04/2024 10:45:05 08/26/2024 08:27:54 Pain of right knee joint 3271770460 25566 M25.561 Osteoarthr itis of right knee joint 1228559745 52490 M17.11 [id number] Bahman Torres, [facility] [address] [place] [address] 09/08/2024 17:09:23 09/09/2024 08:11:56 Osteoarthritis of right knee joint 8708875557 96622 M17.11 [id number] Audrey Proctor, DANIEL [facility] [place] [address] [place] [address] 10/02/2024 08:13:10 10/29/2024 03:59:35 Osteoarthritis of right knee joint 5676358044 64182 M17.11 Health Concerns Section Related Observation LastModified by Organization Detai ls LastModified Time None Recorded Concern Status LastModified by Organization Details LastModified Time None Recorded Advance Directives Directive None Recorded Payers Encounter Date Sequence Insurance Name Policy Number Policy Hagan Covered Member ID Hagan Member ID Guarantor Name 08/04/2024 1 [facility] INDEMNITY PLAN (PPO) [id number] 1 Samia Rosales [id number] Samia Rosales 09/08/2024 1 [facility] IN[employer]MNITY PL[employer] (PPO) [id number] 1 Samia Rosales [id number] Samai Rosales 10/02/2024 1 [facility] IN[employer]MNITY PL[employer] (PPO) [id number] 1 Samia Rosales [id number] Samia Rosales Notes Date Note Type Note Provider Name and Address Organization Details Recorded Time 09/08/2024 text/html Patient is a 63 year old female, with chronic history of (R) knee pain and OA. Presents today for prehab visit for scheduled TKA. Arrives today ambulating with cane. Reviewed post-operative mobility and mechanics with appropriate assistive device. Has 12 steps at home with (B) railings. Demonstrates good understanding of post-operative expectations and HEP.Functional limitations include restricted knee ROM, difficulty ambulating community distances, and pain navigating stairs. Patient goal is to... Dayana Escoto, PT [address], [place], [address], [facility] 09/08/2024 18:52:02 OBGyn Episode No OBEpisode recorded.
--- OUTSIDE RECORDS SUMMARY | 2024-10-29 07:56 | XMS_ITS | Continuity of Care Document ---
Author Organization [facility] Address [address] [place] [address] Care Team Providers Care Head Orthopedic Team Physician Name Role Phone VIKI NG Primary Care Provider [phone] Assessment Encounter Date Assessment Date Assessment LastModified by Organization Details LastModified Time 09/08/2024 09/08/2024 Assessment: Patient presents with symptoms that are consistent with knee OA. Demonstrates good understanding of home program, post-operative mechanics for gait and stairs, and expectations following surgery. Plan: Discharge patient to knee OA safe [facility]. Follow up with patient post-operatively . [email or web address] Not available 09/08/2024 08:22:17 Plan of Treatment Reminders Order Date Submit Date Provider Last Modified By Organization Details Last Modified Time Details Appointments None record ed. Lab None record ed. Referral None record ed. Procedures None record ed. Surgeries None record ed. Imaging None record ed. Medication Orders None record ed. Patient Targets Encounter Date Encounter Id Patient Goals Patient Target Last Modified By Organization Details Last Modified Time 09/08/2024 [id number] [facility] Compliance [id number] Not available Not available Not available Patient InstructionsNo instructions recorded. Reason for Referral None Reported. Problems Name Problem SNOMED Code Status Onset Date Resolution Date Notes Provider Name and Address Organization Details Recorded Time No complaints 102362247 Active Status : 'A'; Not Available [facility] 4 09:20:42 Problem Notes None recorded. Procedures Surgical History Date Name Laterality Status Provider Name and Address Organization Details Recorded Time 4 19092 Therapeutic Exercise (1:1) completed Dayana Escoto, PT [address], [place], [address], [facility] 09/08/2024 18:50:58 94545: Low complexity PT Eval completed Dayana Escoto, PT [address], [place], [address], [facility] 09/08/2024 18:51:01 Imaging Results None recorded. Procedure Notes None recorded. Medical Equipment None [...] Not Available Not Available Not Available Vitals None Recorded Social History None recorded. Functional Status None recorded. Mental Status None recorded. Family History Nothing Reported. Medical History No medical history recorded. Gynecological HistoryNo gynecological history recorded. Obstetrics History GPAL:G 0 P 0 0 0 0 Past Encounters Encounter ID Performer Location Encounter Start Date Encounter Closed Date Diagnosis/Indication Diagnosis SNOMED-CT Code Diagnosis ICD10 Code [id number] Bahman Torres DPT [facility] [address] [place] [address] 09/08/2024 17:09:23 09/09/2024 08:11:56 Osteoarthritis of right knee joint 0415270195 82076 M17.11 Health Concerns Section Related Observation LastModified by Organization Detai ls LastModified Time None Recorded Concern Status LastModified by Organization Details LastModified Time None Recorded Payers Encounter Date Sequence Insurance Name Policy Number Policy Hagan Covered Member ID Hagan Member ID Guarantor Name 09/08/2024 1 [facility] INDEMNITY PLAN (PPO) [id number] 1 Samia Rosales [id number] Samia Rosales Notes Date Note Type Note [...] Escoto, PT [address], [place], [address], [facility] 09/08/2024 18:52:02 OBGyn Episode No OBEpisode recorded.
--- OUTSIDE RECORDS SUMMARY | 2024-10-29 07:56 | XMS_ITS | Continuity of Care Document ---
Author Organization [place] - [facility], [facility] 2nd floor Address [address] [place] [address] Care Team Providers Care Mortgage Branch Manager Name Role Phone VIKI NG Primary Care Provider [phone] Assessment Encounter Date Assessment Date Assessment LastModified [...] at the preoperative history and physical appointment. [email or web address] Not available 08/04/2024 11:37:13 Plan of Treatment Reminders Order Date Submit Date Provider Last Modified By Organization Details Last Modified Time Details Appointments None record ed. Lab None record ed. Referral None record ed. Procedures None record ed. Surgeries None record ed. Imaging XR, knee, 4 or more view - 205 rt knee 4v 024 08/04/20 24 [facility], [address], [address], [place], [address], 4 08:27:54 Medication Orders None record ed. Patient TargetsNo targets recorded. Patient InstructionsNo instructions recorded. Reason for Referral None Reported. Results Created Date Observation Date Name Description Value Unit Range Abnormal Flag Note LastModifiedBy Organization Detail LastModifiedTime 08/04/20 24 08/04/2024 XR, knee, 4 or more view http:/ [email or web address] ?Encry pted=s hAaTro YD8dLq bEUv6g %2BXZw aYqtaq 0bqfl% 2Fg9IQ a4ajBk vP9nXo QUaueC m3YtLR FvZl JJ8mAn HZtai3 2t0218 AC0Kqa nmAWaq kKiQtr [facility]wF [facility] [address], [place], [address], 08/04/2024 12:03:38 08/04/20 24 08/04/2024 XR, knee, 4 or more view http:/ [email or web address] ?Encry pted=s hAaTro YD8dLq bEUv6g %2BXZw aYqtaq 0bqfl% 2Fg9IQ a4ajBk vP9nXo QUaueC m3YtLR FvZl JJ8mAn HZtai3 0b5967 AC0Kqa nmAWaq kKiQtr MwF INTERFACE [facility] [address], [place], [address], 08/04/2024 12:03:40 Result Notes None recorded. Problems Name Problem SNOMED Code Status Onset Date Resolution Date Notes Provider Name and Address Organization Details Recorded Time No complaints 918805758 Active Status : 'A'; Not Available [facility] 4 09:20:42 Problem Notes None recorded. Procedures Surgical History Date Name Laterality Status Provider Name and Address Organization Details Recorded Time 4 42790 Therapeutic Exercise (1:1) completed Dayana Escoto, PT [address], [place], [address], [facility] 09/08/2024 18:50:58 4 41796: Low complexity PT Eval completed Dayana Escoto, PT [address], [place], [address], [facility] 09/08/2024 18:51:01 Imaging Results None recorded. Procedure [...] Updated DateTime 08/04/2024 154.94 cm 33.4 kg/m2 45167.85 g JONATHAN PERALTA [facility] 08/04/2024 11:03:05 Social History None recorded. Functional Status None recorded. Mental Status None recorded. Family History Nothing Reported. Medical History No medical history recorded. Gynecological HistoryNo gynecological history recorded. Obstetrics History GPAL:G 0 P 0 0 0 0 Past Encounters Encounter ID Performer Location Encounter Start Date Encounter Closed Date Diagnosis/Indication Diagnosis SNOMED-CT Code Diagnosis ICD10 Code [id number] MD Myranda Servin 2nd floor [address] [place] [address] 08/04/2024 10:45:05 08/26/2024 08:27:54 Pain of right knee joint 1322248833 46642 M25.561 Osteoarthr itis of right knee joint 5709597233 94774 M17.11 Health Concerns Section Related Observation LastModified by Organization Detai ls LastModified Time None Recorded Concern Status LastModified by Organization Details LastModified Time None Recorded Payers Encounter Date Sequence Insurance Name Policy Number Policy Hagan Covered Member ID Hagan Member ID Guarantor Name 08/04/2024 1 [facility] INDEMNITY PLAN (PPO) [id number] 1 Samia Rsoales [id number] Samia Rosales OBGyjet Episode No OBEpisode recorded.
--- OUTSIDE RECORDS SUMMARY | 2024-10-29 07:56 | XMS_ITS | Data Portability ---
Author Organization [place], [address] Address [address] [place] [address] Assessment No assessment recorded. Plan of Treatment Reminders Order Date Submit Date Provider Last Modified By Organization Details Last Modified Time Details Appointments None recorded. Lab None recorded. Referral orthopedic surgeon referral 2022 023 [email or web address] 26 [facility], [address] [place], [address], 07:27:56 Procedures None recorded. Surgeries None recorded. Imaging XR, wrist, 3 or more view 2022 023 [facility], [address] [place], [address], 21:02:02 Medication Orders None recorded. Patient TargetsNo targets recorded. Patient Instructions Encounter Date Encounter Id Patient Instructions Last Modified By Organization Details Last Modified Time 05/24/2023 [id number] broken wrist: care instructions Not available 05/24/2023 19:51:38 Based on your presentation and exam, you are diagnosed with an Wrist Fracture My suggestions for this condition include: 1. Ice 2. Elevate 3. Rest 4. Take Ibuprofen or Tylenol if you do not have any allergies to these medications. If you take a blood thinner you should not take NSAIDS like Ibuprofen. 5. After 3 days of icing - I would switch to heat - this will help reabsorb any bruising or swelling. 6. Wear the wrist splint until you are evaluated by the orthopedist. You need to schedule an appointment with an orthopedist. I would be seen more urgently if you develop any of the following symptoms. 1. Numbness 2. Cold Extremities 3. Worsening Pain 4. Skin Redness 5. Arm Swelling Thank you for using [facility], please contact our office if you have any questions or concerns. Not available 05/24/2023 19:16:07 Reason for Referral Orthopedic Surgeon Referral for Closed fracture of right wrist Fracture Radius and Ulna Referring Physician: Brittani Connors, Urgent Care, Encounter Date: 05/24/2023 Results Created Date Observation Date Name Description Value Unit Range Abnormal Flag Note LastModifiedBy Organization Detail LastModifiedTime 05/24/20 23 05/24/2023 XR, wrist , 3 or more view No observ ation record ed. [email or web address] [facility] [address] [place], [address], 05/25/2023 08:10:09 Result Notes None recorded. Problems Name Problem SNOMED Code Status Onset Date Resolution Date Notes Provider Name and Address Organization Details Recorded Time Seizure disorder 681239902 Active 023 Darcy bledsoe PA - [facility] 18:58:32 Problem Notes None recorded. Procedures Surgical History None recorded. Imaging Results Imaging Date Name Status LastModified by Organiz ation Details LastModified Time 05/24/2023 XR, wrist, 3 or more view completed [email or web address] [facility] [address] [place], [address], 05/25/2023 08:10:09 Procedure Notes None recorded. Medical Equipment None Reported. Allergies Allergen ID Allergen Name Allergen Category Reaction Reaction Severity Criticality Documentation Date Start Date Code Code System Note Provider Name and Address Organization Details Recorded Time 884182 Dilantin medicatio n Not available Not available Not available 05/24/2023 0 RxNorm Darcy bledsoe PA - [facility] 18:57:13 Medications Name Sig Start Date Stop Date Status Note LastModified by Organization Details LastModified Time carbamazepine active Not Available Not Available Not Available lamotrigine active Not Available Not A vailable Not Available Vitals Date Recorded Body height Body mass index (BMI) Body weight Respiratory rate Oxygen saturation Oxygen saturation in Arterial blood by Pulse oximetry Heart rate Body temperature Systolic blood pressure Diastolic blood pressure Provider Name and Address Organization Details Last Updated DateTime 3 154.94 cm 32.1 kg/m2 18401.7 g 18 /min 98 % 98 % 78 /min 99 [degF] 151 mm[Hg] 92 mm[Hg] Darcy Nilda PA [facility] 3 19:00:04 Social History Question Answer Notes LastModified by Organizat ion Details LastModified Time Tobacco Smoking Status Never Smoker Daryc bledsoe PA [facility] 05/24/2023 18:58:46 What Is Your Level Of Alcohol Consumption? None Information not available 05/24/2023 Do You Use Any Illicit Or Recreational Drugs? No Information not available 05/24/2023 Have You Recently Traveled Abroad? No Information not available 05/24/2023 Do You Or Have You Ever Used Any Other Forms Of Tobacco Or Nicotine? No Information not available 05/24/2023 Sex: Unknown Functional Status None recorded. Mental Status None recorded. Family History Relationship Description Onset Age of this Age Resolved Age Notes LastModified by Organization Details LastModified Time Father No current problems or disability [email or web address] Not available 05/24 18:58:35 Mother No current problems or disability [email or web address] Not available 05/24 18:58:35 Medical History No medical history recorded. Gynecological HistoryNo gynecological history recorded. Obstetrics History GPAL:G 0 P 0 0 0 0 Immunizations Vaccine Type Date Status Note Provider Nam e and Address Organization Details Recorded Time zoster recombinant 3 completed Darcy bledsoe PA [facility] 05/24/2023 18:56:52 COVID-19, mRNA, LNP-S, PF, 100 mcg/0.5mL dose or 50 mcg/0.25mL dose 1 completed Darcy bledsoe PA [facility] 05/24/2023 18:56:52 COVID-19 vaccine, vector-nr, rS-Ad26, PF, 0.5 mL 1 completed Darcy bledsoe PA [facility] 05/24/2023 18:56:52 Influenza, split virus, trivalent, preservative 2 completed GEORGIANA Saab - [facility] 05/24/2023 18:56:52 Past Encounters Encounter ID Performer Location Encounter Start Date Encounter Closed Date Diagnosis/Indication Diagnosis SNOMED-CT Code Diagnosis ICD10 Code [id number] [address] [address] [place] [address] 07/26/2017 17:00:06 07/26/2017 17:47:43 [id number] [facility] [address] [facility] [address] [place] [address] 05/24/2023 18:31:50 05/24/2023 19:53:19 Pain of right wrist 5872986974 62371 M25.531 Closed fra cture of right wrist 3580160915 9269043 S62.91XA Health Concerns Section Related Observation LastModified by Organization Detai ls LastModified Time None Recorded Concern Status LastModified by Organization Details LastModified Time None Recorded Advance Directives Directive None Recorded Payers Encounter Date Sequence Insurance Name Policy Number Policy Hagan Covered Member ID Hagan Member ID Guarantor Name 07/26/2017 1 [facility] INDEMNITY PLAN - [facility] [id number] 1 Jamie Benjamin Silvia [id number] Samia Rosales 05/24/2023 1 [facility] [id number] 1 Jamie Benjamin Silvia [id number] Samiakarli Rosales Notes Date Note Type Note Provider Name and Address Organization Details Recorded Time 05/24/2023 text/html Wrist / Hand InjuryReported bypatient.source of patient informationpatient; Patient arrived at Urgent Care ambulatory Location:right Associated Symptoms:pain;weakne ss;swelling;ecchymos is Severity:mild Duration:2 days Context:fall Hand Dominance:left Aggravating Factors:ROM Previous InjuryNo prior injury to affected body partNotes:The patient was walking up a hill and she fell. The patient reports that she put her hand out and landed with an outstretched wrist. She states pain mostly over the radius area. There is significant bruising and swellng. No previous history of fracture. The patient states that she does not have any numbness. Full ROM of the finger. GEORGIANA BRAVO [address] [place], [address], [place] - [facility] 05/24/2023 20:47:13 OBGyn Episode No OBEpisode recorded.
--- OUTSIDE RECORDS SUMMARY | 2024-10-29 07:56 | XMS_ITS | Continuity of Care Document ---
Author Organization [place] - [facility], [facility] 2nd floor Address [address] [place] [address] Care Team Providers Care Research Development Manager Name Role Phone VIKI NG Primary Care Provider [phone] Assessment Encounter Date Assessment Date Assessment LastModified by Organization Details LastModified Time 10/02/2024 10/02/2024 PRIMARY DIAGNOSI S: Osteoarthritis of [...] osteoarthritis of the right knee. There is cwvt-qi-[id number] articulation, subchondral sclerosis and osteophyte formation. EKG [...] CONTACTS: Her , Jamie with phone number [phone]. jose luis Not available 10/02/2024 12:36:09 Plan of Treatment Reminders Order Date Submit Date Provider Last Modified By Organization Details Last Modified Time Details Appointments None recorded. Lab None recorded. Referral None recorded. Procedures None recorded. Surgeries None recorded. Imaging None recorded. Medication Orders aspirin 325 mg tablet,amrgarita yed release 2023 024 jose luis [id number], [address] [place], [address], 4 12:03:30 Colace 100 mg capsule 2023 024 jose luis [id number], [address] [place], [address], 4 12:03:30 Celebrex 200 mg capsule 2023 024 jose luis [id number], [address] [facility] [place], [address], 4 12:03:30 pantoprazol e 40 mg tablet,margarita yed release 2023 024 [email or web address] [id number], [address] [facility] [place], [address], 4 12:03:30 Patient TargetsNo targets recorded. Patient InstructionsNo instructions recorded. Reason for Referral None Reported. Problems Name Problem SNOMED Code Status Onset Date Resolution Date Notes Provider Name and Address Organization Details Recorded Time No complaints 836127516 Active Status : 'A'; Not Available [facility] 09:20:42 Problem Notes None recorded. Procedures Surgical History Date Name Laterality Status Provider Name and Address Organization Details Recorded Time 4 80272 Therapeutic Exercise (1:1) completed Dayana Escoto, PT [address], [place], [address], [facility] 09/08/2024 18:50:58 4 98819: Low complexity PT Eval completed Dayana Escoto, PT [address], [place], [address], [facility] 09/08/2024 18:51:01 Imaging Results None recorded. Procedure [...] Updated DateTime 10/02/2024 154.94 cm 33.6 kg/m2 82688.44 g RAQUEL AGUIRRE [facility] 10/02/2024 08:26:11 Social History None recorded. Functional Status None recorded. Mental Status None recorded. Family History Nothing Reported. Medical History No medical history recorded. Gynecological HistoryNo gynecological history recorded. Obstetrics History GPAL:G 0 P 0 0 0 0 Past Encounters Encounter ID Performer Location Encounter Start Date Encounter Closed Date Diagnosis/Indication Diagnosis SNOMED-CT Code Diagnosis ICD10 Code [id number] Bahman Torres, [facility] on [address] [place] [address] 09/08/2024 17:09:23 09/09/2024 08:11:56 Osteoarthritis of right knee joint 8682273346 34721 M17.11 [id number] Audrey Proctor, SENIOR TECHNICAL SUPPORT ENGINEER [facility] 2nd floor [address] [facility] [place] [address] 10/02/2024 08:13:10 10/29/2024 03:59:35 Osteoarthritis of right knee joint 8114857438 12676 M17.11 Health Concerns Section Related Observation LastModified by Organization Detai ls LastModified Time None Recorded Concern Status LastModified by Organization Details LastModified Time None Recorded Payers Encounter Date Sequence Insurance Name Policy Number Policy Hagan Covered Member ID Hagan Member ID Guarantor Name 10/02/[address] [facility] INDEMNITY PLAN (PPO) [id number] 1 Samia Rosales [id number] Samia Rosales OBGyn Episode No OBEpisode recorded.
== END 2024-10-24 12:29 | disposition home or self-care (01) ==
PROVIDERS: PCP Internal Medicine; Visit Provider Internal Medicine
DX: Z98.890 Other specified postprocedural states (principal); M17.0 Bilateral primary osteoarthritis of knee; R56.9 Unspecified convulsions; E78.5 Hyperlipidemia, unspecified; Z00.00 Encounter for general adult medical examination without abnormal findings

== ENCOUNTER → 2024-10-24 11:22 | Outpatient (BNVA) | payer OTHER, SELFPAY | PROVIDERS: PCP Internal Medicine; Visit Provider Internal Medicine | DX: Z00.00 Encounter for general adult medical examination without abnormal findings (principal); M17.0 Bilateral primary osteoarthritis of knee; R56.9 Unspecified convulsions; E78.5 Hyperlipidemia, unspecified | CPT/HCPCS: 96127 ==

== ENCOUNTER 2024-11-22 08:54 | Outpatient (REF) | payer OTHER, SELFPAY ==
--- NOTE | ~2024-11-22 | MM_ITS ---
EXAMINATION: MM SCREENING DIGITAL BREAST TOMOSYNTHESIS, BILATERAL CLINICAL INFORMATION: Screening. Asymptomatic. COMPARISON: Mammography: Comparison is made with available priors TECHNIQUE: Digital breast mammography with tomosynthesis is performed in both the craniocaudal and mediolateral oblique views along with computer-aided detection (CAD). FINDINGS: There are scattered areas of fibroglandular density (ACR BI-RADS breast composition Category b). There are no significant masses, abnormal calcifications, or other abnormalities. MM/MM tomosynthesis screening BI IMPRESSION: No mammographic evidence of malignancy. ASSESSMENT: BI-RADS BI-RADS 1 - Negative RECOMMENDATION: Routine annual mammography screening. 1 year F/U This examination should not preclude the clinical evaluation of a suspicious palpable abnormality. This patient's information was entered into a reminder system with a target due date for their next mammogram. Electronically signed by: Malika Casanova DO 11/30/2024 05:47 PM PABLO
== END 2024-11-22 08:55 | disposition home or self-care (01) ==
LOC: HO.MAMMO 08:54
PROVIDERS: PCP Internal Medicine; Visit Provider Internal Medicine
DX: Z12.31 Encounter for screening mammogram for malignant neoplasm of breast (principal)
CPT/HCPCS: 77063; 77067

== ENCOUNTER → 2024-11-22 09:15 | Outpatient (BNV) | payer OTHER, SELFPAY | PROVIDERS: PCP Internal Medicine; Visit Provider Internal Medicine | DX: Z12.31 Encounter for screening mammogram for malignant neoplasm of breast (principal) | CPT/HCPCS: 77063; 77067 ==

== ENCOUNTER 2025-02-02 12:43 | Outpatient (REF) | payer OTHER, SELFPAY ==
--- OUTSIDE RECORDS SUMMARY | 2025-02-02 14:44 | XMS_ITS | Patient Health Record ---
Author Organization [facility] Address [address] [place] [address] Support Name Relationship Address Phone JADIEL CHADWICK Emergency Contact [address] NIKKI Hayes [phone] JOSUE CHADWICK Guarantor Unknown Care Team Providers Care Bilingual Executive Assistant Name Role Phone Savannah Salgado MD Primary Care Provider Igor Post [phone] Allergies Allergen (clinical drug ingredient) Drug/Non Drug Allergy documented on EMR Reaction Allergy Type Onset Date Status phenytoin Dilantin Unknown Drug Allergy Active Reason For Referral No Information Medications Medication SIG (Take, Route, Fr equency, Duration) Notes Start Date End Date Status lamoTRIgine Active Carbatrol 200mg bid Acti ve MoviPrep 100 GM as directed Orally a s directed for 1 dose 08/12/2013 Active Problems Problem Type SNOMED Code ICD Code Onset Dates Problem Status W/U Status Risk Notes Problem Blood in stool (065457963) Blood in stool (578.1) Active confirmed Problem Constipation (08075685) Constipation (564.00) Active confirmed Problem Feces contents abnormal (050728226) Heme positive stool (792.1) Active confirmed Plan Of Treatment Future Test Test Name Order Date COLONOSCOPY 08/12/2013 Next Appt Details Provider Name:Igor Agus Ferraro , 02/17/2025 01:20:00 PM, [address], [address], [place], [address], Insurance Providers Payer Name Payer Address Payer Phone Subscriber Number Group Number Insured Name Patient Relationship to Insured Coverage Start Date Coverage End Date [employer] ([employer]) [address] NIKK[place] [id number] [id number] Self - patient is the insured Medical (General) History Medical History History ICD Code Denies HI,DM,CVA,Lung disease,renal dise ase Epilepsy--still active-gener alized or partial seizures---once or twice a month Surgical History Surgery Date(Month/Year) brain surgery--at [facility]-put electrodes in the brain to do tests for the epilepsy 06/2011 Surgery for seizures-Vagus nerve stimula tor in 2000
--- OUTSIDE RECORDS SUMMARY | 2025-02-02 14:44 | XMS_ITS | Data Portability ---
Author Organization [place] - Mirza Laureano [facility] Surgeons [facility], [facility] Address [address] [place] [address] Care Team Providers Care Shaft Headman Name Role Phone VIKI NG Primary Care Provider [phone] Assessment Encounter Date Assessment Date Assessment LastModified [...] at the preoperative history and physical appointment. [email or web address] Not available 08/04/2024 11:37:13 09/08/2024 09/08/2024 Assessment: Patient presents with symptoms that are consistent with knee OA. Demonstrates good understanding of home program, post-operative mechanics for gait and stairs, and expectations following surgery. Plan: Discharge patient to knee [facility]. Follow up with patient post-operatively. [email or web address] Not [...] osteoarthritis of the right knee. There is dqkq-uq-eikn articulation, subchondral sclerosis and osteophyte formation. EKG [...] CONTACTS: Her , Jamie with phone number [phone]. jose luis Not available 10/02/2024 12:36:09 Plan of Treatment Reminders Order Date Submit Date Provider Last Modified By Organization Details Last Modified Time Details Appointments None recorded. Lab None recorded. Referral None recorded. Procedures None recorded. Surgeries None recorded. Imaging XR, knee, 4 or more view - 205 rt knee 4v 2023 024 [email or web address] Myranda [facility], [address], [facility] [address], [place], [address], 08:27:54 Medication Orders aspirin 325 mg tablet,margarita yed release 2023 024 jose luis [id number], [address] [facility] [place], [address], 4 12:03:30 Colace 100 mg capsule 2023 024 jose luis [id number], [address] [facility] [place], [address], 4 12:03:30 Celebrex 200 mg capsule 2023 024 jose luis [facility], [address] [facility] [place], [address], 4 12:03:30 pantoprazol e 40 mg tablet,margarita yed release 2023 024 jose luis [facility], [address] [facility] [place], [address], 4 12:03:30 Patient Targets Encounter Date Encounter Id Patient Goals Patient Target Last Modified By Organization Details Last Modified Time 09/08/2024 [id number] HEP Compliance independent in home exercise program Not available Not available Not available Patient InstructionsNo instructions recorded. Reason for Referral None Reported. Results Created Date Observation Date Name Description Value Unit Range Abnormal Flag Note LastModifiedBy Organization Detail LastModifiedTime 08/04/20 24 08/04/2024 XR, knee, 4 or more view [email or web address]:/ [email or web address] ?Encry pted=s hAaTro YD8dLq bEUv6g %2BXZw aYqtaq 0bqfl% 2Fg9IQ a4ajBk vP9nXo QUaueC m3YtLR FvZlgJ JJ8Ukiah HZtai3 4d2355 AC0Kqa nmAWaq kKiQtr MwF INTERFACE [facility] [address], [place], [address], 08/04/2024 12:03:38 08/04/20 24 08/04/2024 XR, knee, 4 or more view [email or web address]:/ [email or web address] ?Encry pted=s hAaTro YD8dLq bEUv6g %2BXZw aYqtaq 0bqfl% 2Fg9IQ a4ajBk vP9nXo QUaueC m3YtLR FvZlgJ JJ8Ukiah HZtai3 0n8785 AC0Kqa nmAWaq kKiQtr MwF INTERFACE [facility] [address], [place], [address], 08/04/2024 12:03:40 Result Notes None recorded. Problems Name Problem SNOMED Code Status Onset Date Resolution Date Notes Provider Name and Address Organization Details Recorded Time No complaints 657451161 Active Status : 'A'; Not Available [facility] 09:20:42 Problem Notes None recorded. Procedures Surgical History Date Name Laterality Status Provider Name and Address Organization Details Recorded Time 4 00165 Therapeutic Exercise (1:1) completed Dayana Escoto, PT [address], [place], [address], [facility] [place] [facility] 09/08/2024 18:50:58 10/21/202 4 05484: Low complexity PT Eval completed Dayana Escoto, PT [address], [place], [address], [place] [facility] 09/08/2024 18:51:01 Imaging Results Imaging Date Name Status LastModified by Organiz ation Details LastModified Time 08/04/2024 XR, knee, 4 or more view completed [facility]FACE [address] [address], [place], [address], 08/04/2024 12:03:38 08/04/2024 XR, knee, 4 or more view completed INTERFACE [address], [place], [address], 08/04/2024 12:03:40 Procedure Notes None recorded. Medical [...] Updated DateTime 08/04/2024 154.94 cm 33.4 kg/m2 08627.85 g JONATHAN PERALTA [facility] 08/04/2024 11:03:05 Date Recorded Body height Body mass index (BMI) Body weight Provider Name and Address Organization Details Last Updated DateTime 10/02/2024 154.94 cm 33.6 kg/m2 84322.44 g RAQUEL AGUIRRE [facility] 10/02/2024 08:26:11 Social History None recorded. Functional Status None recorded. Mental Status None recorded. Family History Nothing Reported. Medical History No medical history recorded. Gynecological HistoryNo gynecological history recorded. Obstetrics History GPAL:G 0 P 0 0 0 0 Past Encounters Encounter ID Performer Location Encounter Start Date Encounter Closed Date Diagnosis/Indication Diagnosis SNOMED-CT Code Diagnosis ICD10 Code Diagnosis Note [id number] MD Myranda Servin [address]nd floor [address] [place] [address] 08/04/2024 10:45:05 08/26/2024 08:27:54 Pain of right knee joint 1180800159 57647 M25.561 Osteoarthr itis of right knee joint 2187209204 35233 M17.11 [id number] Bahman Torres, [facility] [place] [facility] [address] [place] [address] 09/08/2024 17:09:23 09/09/2024 08:11:56 Osteoarthritis of right knee joint 3213575904 47532 M17.11 [id number] Audrey Proctor, DANIEL [facility] [address] floor [address] [place] [address] 10/02/2024 08:13:10 10/29/2024 03:59:35 Osteoarthritis of right knee joint 1310799276 25088 M17.11 Health Concerns Section Related Observation LastModified by Organization Detai ls LastModified Time None Recorded Concern Status LastModified by Organization Details LastModified Time None Recorded Advance Directives Directive None Recorded Payers Encounter Date Sequence Insurance Name Policy Number Policy Hagan Covered Member ID Hagan Member ID Guarantor Name 08/04/2024 1 [facility] [employer] [id number] 1 Samia Rosales [id number] Samia Rosales 09/08/2024 1 [facility] [facility] [employer] [id number] 1 Samia Rosales [id number] Samia Rosales 10/02/2024 1 [facility] [facility] [employer]) [id number] 1 Samia Rosales [id number] Samia Rosales Notes Date Note Type Note [...] Escoto, PT [address], [place], [address], [facility] 09/08/2024 18:52:02 OBGyn Episode No OBEpisode recorded.
--- OUTSIDE RECORDS SUMMARY | 2025-02-02 14:44 | XMS_ITS | Continuity of Care Document ---
Author Organization [facility] Address [address] [place] [address], [address] Floor, [address] [place] [address]- Care Team Providers Care Fur Trapper Name Role Phone Savannah Salgado MD Primary Care Physician Encounter [facility] Date(s): 01/02/25 - 02/01/25 [facility] [address] [place] [address] [address]rd Floor, [address] [place] [address] Attending Physician: Elva Alvarez Admitting Physician: Elva Alvarez Referring Physician: Elva Alvarez Encounter Type: Triage Allergies, Adverse Reactions, Alerts [...] tetanus/diphtheria/pertussis, acel(Tdap) 02/24/16 Given 1Result Comment: [facility]: [id number] 2Result Comment: [09/13/2017] [facility]# 82004-201-67 Medications acetaminophen 325 mg oral tablet 650 mg, By Mouth, Every 6 hours, may take OTC not to exceed 3000 mg/day, Refills 0, Maintenance, 09/05/23 8:34:00 AM EDT, Partial fill upon patient request if the prescription is for a schedule II opioid drug. Start Date: 09/05/23 Status: Ordered Repeat number: 1 carBAMazepine 200 mg oral tablet, extended release 1 tablet, By Mouth, 2 times a day, # 180 tablet, 3 Refills, Maintenance, 10/07/24 11:00:00 AM EST, [facility], 156, cm, 10/01/24 13:23:00 EST, Height, 80, kg, 10/07/24 6:35:00 EST, Dry Weight Start Date: 10/07/24 Status: Ordered Quantity: 180.0 Unit: tablet Repeat number: 1 diazePAM 20 mg/dose nasal spray 1 sprays, Nares, Both, Once, may repeat once after at least 4 hours if needed, # 2 each, 4 Refills,Soft Stop, 07/09/23 10:36:00 AM EDT, [place], [id number], Partial fill upon patient request ifthe prescription is for a schedule II opioid drug., 154.6, cm, 07/09/23 10:07:00 EDT, Height Start Date: 07/09/23 Status: Ordered Quantity: 2.0 Unit: each Repeat number: 5 docusate sodium 100 mg oral capsule 1 capsule = 100 mg, By Mouth, 2 times a day, # 20 capsule, 0 Refills, Maintenance, 10/30/24 11:03:00 AM EST, Capsule, [facility], Partial fill upon patient request if the prescription is for a schedule II opioid drug., 156, cm, 10/01/24 13:23:00 EST, Height, 80, kg, 10/07/24 6:35:00 EST, Dry Weight Start Date: 10/30/24 Stop Date: 11/09/24 Status: Ordered Quantity: 20.0 Unit: capsule Repeat number: 1 lamotrigine 200 mg oral tablet 1 tablet, By Mouth, 2 times a day, # 180 tablet, 3 Refills, Maintenance, 08/05/24 3:18:00 PM EDT, [facility], 156, cm, 09/05/23 11:24:00 EDT, Height, 78, [...] Team Personnel Name: Savannah Salgado MD Position: [facility] Physician - Primary Care Member Role: PCP Address: [address] [place] [address] Telecom: Name: Telma Rahman RN Position: [facility] RN Member Role: Primary Care Nurse Name: Crescencio Weller RN Position: [facility] RN Member Role: Primary Care Nurse Care Team Related Persons Name: JADIEL CHADWICK Name: SANJUANITA LUBIN Insurance Providers Guarantor name: JOSUE CHADWICK Health Plan Information #: 1 Payer: [facility] Member Number: NA Policy Number: NA Group Number: NA
--- OUTSIDE RECORDS SUMMARY | 2025-02-02 14:44 | XMS_ITS | Clinical Summary ---
Author Organization [facility] Address [facility] [place] [address] Care Team Providers Care Chief Development Officer Name Role Phone None Primary Care Provider Unavailabl e Allergies Active Allergy Reactions Criticality Noted Date Comments Phenytoin Nausea And Vomiting Dry heaves, GI upset Medications Medication Sig Dispensed Refills Start Date End Date Status naproxen sodium (ANAPROX) 220 mg tablet Take 220 mg by mouth 2 times daily. Active ACETAMINOPHEN WITH CODEINE (TYLENOL-CODEINE #4 ORAL) Take by mouth as needed. Active CARBATROL 200 mg Cap, Multiphasic Release 12 hr TAKE 1 TABLET BY MOUTH TWICE A DAY.NO Substitutions 180 capsule 3 11/15/2015 Active perampanel (FYCOMPA) 4 mg Tablet Take 1 tablet by mouth daily. 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 Immunizations Name Administration Dates Next Due Influenza Trivalent w/Preservative 08/05/2011 Influenza Vaccine, Whole 07/20/2010,08/25/2009 Social History Tobacco Use Types Packs/Day Years Used Date Smoking Tobacco: Never Smokeless Tobacco: Never Alcohol Use Standard Drinks/Week Comments Yes 0 (1 standard drink = 0.6 oz pur e alcohol) social Sex and Gender Information Value Date Recorded Sex Assigned at Not on file Gender Identity Not on file Sexual Orientation Not on file Last Filed Vital Signs Vital Sign Reading Time Taken Comments Blood Pressure 125/82 11/23/2015 2:41 PM EST Pulse 83 11/23/2015 2:41 PM EST Temperature 36.8 ??C (98.2 ??F) 08/09/2011 11:52 AM E DT Respiratory Rate 18 08/09/2011 11:52 AM EDT Oxygen Saturation 99% 08/09/2011 11:52 AM EDT Inhaled Oxygen Concentration - - Weight 91 kg (200 lb 9.6 oz) 11/23/2015 2:41 PM EST Height 152.4 cm (5') 11/23/2015 2:41 PM EST Body Mass Index 39.18 11/23/2015 2:41 PM EST Plan of Treatment Health Maintenance Due Date Last Done Comments CT Colonography 1961 Colonoscopy 1961 Colorectal Cancer Screening 1961 FIT DNA 1961 FIT 1961 Sigmoidoscopy (10 year) with FIT yearly 1961 Sigmoidoscopy 1961 HIV screen 1979 Hepatitis C Screening 1979 Tetanus/Diphtheria/Pertussis Vaccines (1 - Tdap) 1980 HPV test 1991 PAP Smear 1991 Breast Cancer Share Decision Needed 2001 Breast Cancer screening 2001 Pneumoccocal Vaccine: 50+ (1 of 1 - PCV) 2011 Zoster vaccine (1 of 2) 2011 Advance Directive 2016 Covid-19 Vaccine (1 - season) 2024 Influenza (Flu) vaccine (1 o f 1 - Influenza standard series) 07/20/2024 08/05/2011, 07/20/2010, 08/25/2009 Medical Devices Implanted Type Area Curing Oven Attendant Device Identifier Shelf Expiration Date Model / Serial / Lot Electrode,Dept h,12-Cnt,Plat, 60 [id number]) - [id number] Implanted:Qty: 1 on 07/19/2011 at [facility] IMPLANTS [employer] - [id number] X-0L1 / / [id number] Electrode,Dept h,12-Cnt,Plat, 60 [id number]) - [id number] Implanted:Qty: 1 on 07/19/2011 at [facility] IMPLANTS [employer] - [id number] X-0L1 / / [id number] Advance Directives * Full Code (Latest Code Status on File) Date Activated Date Inactivated Comments 07/19/2011 2:40 PM 08/09/2011 4:08 PM Question Answer Comments Order Status: Initial Order Does patient have decision m aking capacity? Yes, Order is based on Patients wishes. Care Teams Chief Development Officer Relationship Specialty Start Date End Date None None PCP - General 11/28/24
--- OUTSIDE RECORDS SUMMARY | 2025-02-02 14:45 | XMS_ITS | Data Portability ---
Author Organization [facility], [address] Address [address] [place] [address] Assessment No assessment recorded. Plan of Treatment Reminders Order Date Submit Date Provider Last Modified By Organization Details Last Modified Time Details Appointments None recorded . Lab None recorded . Referral orthoped ic surgeon referral 2022 023 [email or web address] 26 [facility] (Forrest Velazco), [address] [facility] [place], [address], 07:27:56 Procedures None recorded . Surgeries None recorded . Imaging XR, wrist, 3 or more view 2022 023 [facility], [address] [facility], [place], [address], 21:02:02 Medication Orders None recorded . Patient TargetsNo targets recorded. Patient Instructions Encounter Date Encounter Id Patient Instructions Last Modified By Organization Details Last Modified Time 05/24/2023 [id number] broken wrist: care instructions Not available 05/24/2023 [...] more view No observ ation record ed. [email or web address] [facility] [address] [place], [address], 05/25/2023 08:10:09 Result Notes None recorded. Problems Name Problem SNOMED Code Status Onset Date Resolution Date Notes Provider Name and Address Organization Details Recorded Time Seizure disorder 943578718 Active 023 Darcy bledsoe [place] - [facility] 18:58:32 Problem Notes None recorded. Procedures Surgical History None recorded. Imaging Results Imaging Date Name Status LastModified by Organiz ation Details LastModified Time 05/24/2023 XR, wrist, 3 or more view completed [facility] [address] [place], [address], 05/25/2023 08:10:09 Procedure Notes None recorded. Medical Equipment None Reported. Allergies Allergen ID Allergen Name Allergen Category Reaction Reaction Severity Criticality Documentation Date Start Date Code Code System Note Provider Name and Address Organization Details Recorded Time 844721 Dilantin medicatio n Not available Not available Not available 05/24/2023 0 RxNorm Darcy bledsoe PA [facility] 3 18:57:13 Medications Name Sig Start Date Stop Date Status Note LastModified by Organization Details LastModified Time carbamazepine active Not Available Not Available Not Available lamotrigine active Not Available Not A vailable Not Available Vitals Date Recorded Body height Body mass index (BMI) Body weight Pain severity - 0-10 verbal numeric rating [Score] - Reported Respiratory rate Oxygen saturation Oxygen saturation in Arterial blood by Pulse oximetry Heart rate Body temperature Systolic blood pressure Diastolic blood pressure Provider Name and Address Organization Details Last Updated DateTime 3 154.94 cm 32.1 kg/m2 39447.7 g 8 18 /min 98 % 98 % 78 /min 99 [degF] 151 mm[Hg] 92 mm[Hg] Darcy Munguia PA [facility] 3 19:00:04 Social History Question Answer Notes LastModified by Organizat ion Details LastModified Time Tobacco Smoking Status Never Smoker Darcy bledsoe PA [facility] 05/24/2023 18:58:46 [...] dose 1 completed Darcy bledsoe PA [facility] 05/24/2023 18:56:52 COVID-19 vaccine, vector-nr, [id number], PF, 0.5 mL 1 completed [facility] 05/24/2023 18:56:52 Influenza, split virus, trivalent, preservative 2 completed Darcy [place] [facility] 05/24/2023 18:56:52 Past Encounters Encounter ID Performer Location Encounter Start Date Encounter Closed Date Diagnosis/Indication Diagnosis SNOMED-CT Code Diagnosis ICD10 Code Diagnosis Note [id number] [address] [address] 07/26/2017 17:00:06 07/26/2017 17:47:43 [id number] [place] B[facility]VO [address] [address] 05/24/2023 18:31:50 05/24/2023 19:53:19 Pain of right wrist 5296661174 35069 M25.531 Closed fra cture of right wrist 9384238310 7627328 S62.91XA Copy of the x-ray given. It looks like you have a fracture of the radius. Not displaced. You are going to have to see an orthopedis t. Wear the splint until you are seen by them. Health Concerns Section Related Observation LastModified by Organization Detai ls LastModified Time None Recorded Concern Status LastModified by Organization Details LastModified Time None Recorded Advance Directives Directive None Recorded Payers Encounter Date Sequence Insurance Name Policy Number Policy Hagan Covered Member ID Hagan Member ID Guarantor Name 07/26/2017 1 [facility] [id number] 1 Jamie Rosales [id number] Samia Rosales 05/24/2023 1 [facility] [id number] 1 Jamie Rosales [id number] Samia Rosales Notes Date Note Type Note [...] finger. [place] BRAVO [address] [place], [address], [place] - [facility] 05/24/2023 20:47:13 OBGyn Episode No OBEpisode recorded.
[2025-02-02 16:27] LABS: MANUAL DIFF FLAG NO
[2025-02-02 16:38] LABS: Basophils Percent Auto 0.5 % (0-2); Hemoglobin 13.9 g/dl (12.0-16.0); Imm Gran Abs Auto 0.01 X10*3/uL (0.00-0.03); Imm Gran Pct Auto 0.2 % (0.0-0.4); Lymphocytes Absolute Auto 1.3 X10*3/uL (1.2-4.9); Lymphocytes Percent Auto 23.3 % (20-40); Mean Corpuscular HGB Conc 33.1 g/dl (31.0-35.0); Mean Corpuscular Hemoglobin 29.5 pg (27.0-33.0); Mean Corpuscular Volume 89.2 fL (80.0-98.0); Mean Platelet Volume 10.1 fL (9.4-12.3); Monocytes Absolute Auto 0.4 X10*3/uL (0.1-1.2); Monocytes Percent Auto 7.8 % (2-11); Neutrophils Absolute Auto 3.8 x10*3/uL (2.0-8.3); Neutrophils Percent Auto 68.2 % (45-73); Platelet Count 384 X10*3/uL (160-400); Red Blood Count 4.71 X10*6/uL (4.20-5.50); Red Cell Distribution Width 13.7 % (11.0-16.0); White Blood Count 5.6 X10*3/uL (4.8-10.8)
[2025-02-02 17:10] LABS: Alanine Aminotransferase 11 U/L (0-31); Albumin Level 4.3 g/dL (3.5-5.0); Alkaline Phosphatase 176 U/L (39-117); Anion Gap 13 (12-20); Aspartate Amino Transferase 18 U/L (5-31); Bilirubin Total 0.4 mg/dL (0.0-1.0); Blood Urea Nitrogen 8 mg/dL (9-16); Calcium 9.2 mg/dL (8.4-10.2); Carbon Dioxide 26 mmol/L (22-29); Chloride 108 mmol/L (96-108); Cholesterol 219 mg/dL (<200); Estimated Glomerular Filt Rate > 60; Glucose Fasting 93 mg/dL (60-99); HDL Cholesterol 87 mg/dL (>40); Iron 89 mcg/dL (30-160); LDL Cholesterol Calculated 119 mg/dL (<100); Percent Iron Saturation 36 % (15-50); Sodium 143 mmol/L (135-145); Total Iron Binding Capacity 250 mcg/dL (228-428); Total Protein 7.5 g/dL (6.5-8.0); Triglycerides 65 mg/dL (<150); Unsaturated Iron Binding 161 ug/dL
[2025-02-02 17:15] LABS: TSH reflex Free T4 1.89 uIU/mL (0.32-4.0); Vitamin D 25-OH Total 23.4 ng/mL (>30)
[2025-02-02 17:29] LABS: Folate 5.7 ng/mL (> or = 4.0); Vitamin B12 379 pg/mL (200-900)
== END 2025-02-02 12:44 | disposition home or self-care (01) ==
LOC: HO.HMGCLDS 12:43
PROVIDERS: PCP Internal Medicine; Visit Provider Internal Medicine
DX: Z00.00 Encounter for general adult medical examination without abnormal findings (principal); E78.5 Hyperlipidemia, unspecified; E55.9 Vitamin D deficiency, unspecified
CPT/HCPCS: 36415; 80053; 80061; 82306; 82607; 82746; 83540; 84443; 85025

== ENCOUNTER 2025-05-20 09:12 | Day surgery (SDC) | payer OTHER, SELFPAY ==
--- OUTSIDE RECORDS SUMMARY | 2025-03-27 12:15 | XMS_ITS | Data Portability ---
Author Organization [place] - Mirza Laureano Laleti [facility], [facility] Address [address] [place] [address] Care Team Providers Care Composer Teaching Artist Name Role Phone VIKI NG Primary Care Provider Assessment Encounter Date Assessment Date Assessment LastModified [...] at the preoperative history and physical appointment. [email or web address] Not available 08/04/2024 11:37:13 09/08/2024 09/08/2024 Assessment: Patient presents with symptoms that are consistent with knee OA. Demonstrates good understanding of home program, post-operative mechanics for gait and stairs, and expectations following surgery. Plan: Discharge patient to knee [facility]. Follow up with patient post-operatively. [email or web address] [...] osteoarthritis of the right knee. There is vuge-hb-iruy articulation, subchondral sclerosis and osteophyte formation. EKG [...] CONTACTS: Her , Jamie with phone number [phone]. jose luis Not available 10/02/2024 12:36:09 Plan of Treatment Reminders Order Date Submit Date Provider Last Modified By Organization Details Last Modified Time Details Appointments None recorded. Lab None recorded. Referral None recorded. Procedures None recorded. Surgeries None recorded. Imaging XR, knee, 4 or more view - 205 rt knee 4v 2023 024 [email or web address] [facility], [address], [facility] [[email or web address] [address], [place], [address], 08:27:54 Medication Orders aspirin 325 mg tablet,margartia yed release 2023 024 jose luis [id number], [address] [facility] [place], [address], 4 12:03:30 Colace 100 mg capsule 2023 024 jose luis [id number], [address] [facility] [place], [address], 4 12:03:30 Celebrex 200 mg capsule 2023 024 jose luis [id number], [address] [facility] [place], [address], 4 12:03:30 pantoprazol e 40 mg tablet,margarita yed release 2023 024 jose luis [facility], [address] [facility] [place], [address], 4 12:03:30 Patient Targets Encounter Date Encounter Id Patient Goals Patient Target Last Modified By Organization Details Last Modified Time 09/08/2024 [id number] HEP Compliance independent in home exercise program [...] 0bqfl% 2Fg9IQ a4ajBk vP9nXo QUaueC m3YtLR FvZlgJ JJ8Cascade HZtai3 0c4062 AC0Kqa nmAWaq kKiQtr MwF INTERFACE [facility] [address], [place], [address], 08/04/2024 12:03:38 08/04/20 24 08/04/2024 XR, knee, 4 or more view http:/ [email or web address] 0:7083 ?Encry pted=s hAaTro YD8dLq bEUv6g %2BXZw aYqtaq 0bqfl% 2Fg9IQ a4ajBk vP9nXo QUaueC m3YtLR FvZlgJ JJ8Cascade HZtai3 5e7641 AC0Kqa nmAWaq kKiQtr MwF INTERFACE [facility] [address], [place], [address], 08/04/2024 12:03:40 Result Notes None recorded. Problems Name Problem SNOMED Code Status Onset Date Resolution Date Notes Provider Name and Address Organization Details Recorded Time No complaints 427580748 Active Status : 'A'; Not Available [facility] 09:20:42 Problem Notes None recorded. Procedures Surgical History Date Name Laterality Status Provider Name and Address Organization Details Recorded Time 4 06624 Therapeutic Exercise (1:1) completed Dayana Escoto, PT [address], [place], [address], [facility] 09/08/2024 18:50:58 10/21/202 4 58164: Low complexity PT Eval completed Dayana Escoto, PT [address], [place], [address], [place] - [facility] 09/08/2024 18:51:01 Imaging Results Imaging Date Name Status LastModified by Organiz ation Details LastModified Time 08/04/2024 XR, knee, 4 or more view completed [facility] [address], [place], [address], 08/04/2024 12:03:38 08/04/2024 XR, knee, 4 or more view completed INTERFACE [facility] [address], [place], [address], 08/04/2024 12:03:40 Procedure Notes None recorded. Medical [...] Updated DateTime 08/04/2024 154.94 cm 33.4 kg/m2 10754.85 g JONATHAN PERALTA [facility] 08/04/2024 11:03:05 Date Recorded Body height Body mass index (BMI) Body weight Provider Name and Address Organization Details Last Updated DateTime 10/02/2024 154.94 cm 33.6 kg/m2 53637.44 g RAQUEL AGUIRRE [facility] 10/02/2024 08:26:11 Social History None recorded. Functional Status None recorded. Mental Status None recorded. Family History Nothing Reported. Medical History No medical history recorded. Gynecological HistoryNo gynecological history recorded. Obstetrics History GPAL:G 0 P 0 0 0 0 Past Encounters Encounter ID Performer Location Encounter Start Date Encounter Closed Date Diagnosis/Indication Diagnosis SNOMED-CT Code Diagnosis ICD10 Code Diagnosis Note [id number] MD Myranda Servin 2nd floor [address] [place] [address] 08/04/2024 10:45:05 08/26/2024 08:27:54 Pain of right knee joint 2290062675 05679 M25.561 Osteoarthr itis of right knee joint 6360115463 23803 M17.11 [id number] Dayana Escoto, PT [facility] [address] [place] [address] 09/08/2024 17:09:23 09/09/2024 08:11:56 Osteoarthritis of right knee joint 7686001849 27175 M17.11 [id number] Audrey Proctor, DANIEL [facility] 2nd floor [address] [place] [address] 10/02/2024 08:13:10 10/29/2024 03:59:35 Osteoarthritis of right knee joint 1515202295 71247 M17.11 Health Concerns Section Related Observation LastModified by Organization Detai ls LastModified Time None Recorded Concern Status LastModified by Organization Details LastModified Time None Recorded Advance Directives Directive None Recorded Payers Encounter Date Sequence Insurance Name Policy Number Policy Hagan Covered Member ID Hagan Member ID Guarantor Name 08/04/2024 1 [facility] INDEMNITY PLAN (PPO) [id number] 1 Samia Rosales [id number] Samia Rosales 09/08/2024 1 [facility] INDEMNITY PLAN (PPO) [id number] 1 Samia Rosales [id number] Samia Rosales 10/02/2024 1 [facility] INDEMNITY PLAN (PPO) [id number] 1 Samia Rosales [id number] Samia Rosales Notes Date Note Type Note [...] Escoto, PT [address], [place], [address], [facility] 09/08/2024 18:52:02 OBGyn Episode No OBEpisode recorded.
--- OUTSIDE RECORDS SUMMARY | 2025-03-27 12:15 | XMS_ITS | Patient Health Record ---
Author Organization [facility] Address [address] [place] [address] Support Name Relationship Address Phone JADIEL CHADWICK Emergency Contact [address] NIKKI [place] [phone] MICHAEL CHADWICK Guarantor Unknown [phone] Care Team Providers Care Nailhead Setter Name Role Phone Savannah Salgado MD Primary Care Provider Igor Post [phone] Allergies Allergen (clinical drug ingredient) Drug/Non Drug Allergy documented on EMR Reaction Allergy Type Onset Date Status phenytoin Dilantin Unknown Drug Allergy Active Reason For Referral No Information Medications Medication SIG (Take, Route, Fr equency, Duration) Notes Start Date End Date Status lamoTRIgine Active Carbatrol 200mg bid Acti ve Problems Problem Type SNOMED Code ICD Code Onset Dates Problem Status W/U Status Risk Notes Problem Blood in stool (663041647) Blood in stool (578.1) Active confirmed Problem Constipation (90585139) Constipation (564.00) Active confirmed Problem Feces contents abnormal (678973125) Heme positive stool (792.1) Active confirmed Vital Signs Blood pressure diastolic 11 mm Hg 02/17/2025 Height 61 in 02/17/2025 Blood pressure systolic 111 mm Hg 02/17/2025 Weight 183 lbs 02/17/2025 BMI 34.57 kg/m2 02/17/2025 Procedures Procedure Date Ordered Date Performed Result Body Sit e COLONOSCOPY 02/17/2025 N/A Encounters Encounter Location Date Provider Diagnosis [facility] [address] [place] [address] 02/17/2025 Igor Ferraro Colon cancer screeni ng Z12.11 and Preprocedural examination Z01.818 Assessments Encounter Date Diagnosis (ICD Code) Assessment Notes Treatment Notes Treatment Clinical Notes Section Notes 02/17/2025 Colon cancer screening (ICD-10 - Z12.11) Overall, Michael Cordova appears well. Given her age, overall good clinical appearance, and her last colonoscopy being over 10 years ago, I did recommend a follow-up colonoscopy for further screening purposes. We did review the rationale for this in regard to colon cancer prevention. Full consent has been taken for this, including risks of bleeding and perforation. The procedure will be done with monitored anesthesia care. She will have a PAT appointment as well to discuss her seizure activity with the anesthesia staff. Michael Cordova and her were comfortable with this plan. Thank you again for allowing me to participate in Michael Cordova's care. I shall continue to keep you advised of her progress. 02/17/2025 Preprocedural examination (ICD-10 - Z01.818) Overall, Michael Cordova appears well. Given her age, overall good clinical appearance, and her last colonoscopy being over 10 years ago, I did recommend a follow-up colonoscopy for further screening purposes. We did review the rationale for this in regard to colon cancer prevention. Full consent has been taken for this, including risks of bleeding and perforation. The procedure will be done with monitored anesthesia care. She will have a PAT appointment as well to discuss her seizure activity with the anesthesia staff. Michael Cordova and her were comfortable with this plan. Thank you again for allowing me to participate in Michael Cordova's care. I shall continue to keep you advised of her progress. Plan Of Treatment Pending Test Test Name Order Date COLONOSCOPY 02/17/2025 Future Test Test Name Order Date COLONOSCOPY 08/12/2013 Next Appt Details Provider Name:Igor Ferraro , 05/20/2025 08:30:00 AM, [address] [place] [address] , [place], [place], [phone], Insurance Providers Payer Name Payer Address Payer Phone Subscriber Number Group Number Insured Name Patient Relationship to Insured Coverage Start Date Coverage End Date [facility] Insurance ([facility] [employer]) [address] [place] [address] [id number] MICHAEL MELENDEZ Self - patient is the insured Medical (General) History Medical History History ICD Code Denies RI,DM,CVA,Lung disease,renal dise ase Epilepsy--still active-gener alized or complex partial seizures---once or twice a month Negative screening colonoscopy at age 51 sabas IBS Surgical History Surgery Date(Month/Year) Left hip replacement 2022 Surgery for seizures-Vagus n erve stimulator in 2000 dec battery replacement Brain surgery--at [facility]-put electrodes in the brain to do tests for the epilepsy 06/2011
--- OUTSIDE RECORDS SUMMARY | 2025-03-27 12:15 | XMS_ITS | Data Portability ---
Author Organization [facility], [address] Address [address] [place] [address] Assessment No assessment recorded. Plan of Treatment Reminders Order Date Submit Date Provider Last Modified By Organization Details Last Modified Time Details Appointments None recorded . Lab None recorded . Referral orthoped ic surgeon referral 2022 023 [email or web address] [facility] (Forrest Velazco), [address] [facility], [address], 07:27:56 Procedures None recorded . Surgeries None recorded . Imaging XR, wrist, 3 or more view 2022 023 [facility], [address] [facility], [place], [address], 21:02:02 Medication Orders None recorded . Patient TargetsNo targets recorded. Patient Instructions Encounter Date Encounter Id Patient Instructions Last Modified By Organization Details Last Modified Time 05/24/2023 [id number] broken wrist: care instructions [email or web address] Not available 05/24/2023 19:51:38 Based on your [...] if you have any questions or concerns. [email or web address] Not available 05/24/2023 19:16:07 Reason for Referral Orthopedic Surgeon Referral for Closed fracture of right wrist Fracture Radius and Ulna Referring Physician: Brittani Connors, Urgent Care, Encounter Date: 05/24/2023 Results Created Date Observation Date Name Description Value Unit Range Abnormal Flag Note LastModifiedBy Organization Detail LastModifiedTime 05/24/20 23 05/24/2023 XR, wrist , 3 or more view No observ ation record ed. [facility] [address] [place], [address], 05/25/2023 08:10:09 Result Notes None recorded. Problems Name Problem SNOMED Code Status Onset Date Resolution Date Notes Provider Name and Address Organization Details Recorded Time Seizure disorder 884100527 Active 023 Dracy bledsoe [place] - [facility] 18:58:32 Problem Notes None recorded. Procedures Surgical History None recorded. Imaging Results Imaging Date Name Status LastModified by Organiz ation Details LastModified Time 05/24/2023 XR, wrist, 3 or more view completed [email or web address] [facility] [address] [place], [address], 05/25/2023 08:10:09 Procedure Notes None recorded. Medical Equipment None Reported. Allergies Allergen ID Allergen Name Allergen Category Reaction Reaction Severity Criticality Documentation Date Start Date Code Code System Note Provider Name and Address Organization Details Recorded Time 992045 Dilantin medicatio n Not available Not available [...] Updated DateTime 3 154.94 cm 32.1 kg/m2 55777.7 g 8 18 /min 98 % 98 [...] virus, trivalent, preservative 2 completed Darcy [facility] 05/24/2023 18:56:52 Past Encounters Encounter ID Performer Location Encounter Start Date Encounter Closed Date Diagnosis/Indication Diagnosis SNOMED-CT Code Diagnosis ICD10 Code Diagnosis Note [id number] [facility] [address] [address] [address] 07/26/2017 17:00:06 07/26/2017 17:47:43 [id number] [facility] B[facility] [address] [address] 05/24/2023 18:31:50 05/24/2023 19:53:19 Pain of right wrist 7400176435 23810 M25.531 Closed fra cture of right wrist 4594689144 3848434 S62.91XA Copy of the x-ray given. It [...] Recorded Advance Directives Directive None Recorded Payers Insurance Date Sequence Insurance Name Policy Number Policy Hagan Covered Member ID Hagan Member ID Guarantor Name 05/24/2023 1 [facility] [id number] 1 Jamie Benjamin Silvia [id number] Samia Rosales Notes Date Note Type Note [...] [place] BRAVO [address] [place], [address], [place] - [facility] 05/24/2023 20:47:13 OBGyn Episode No OBEpisode recorded.
--- OUTSIDE RECORDS SUMMARY | 2025-03-27 12:15 | XMS_ITS ---
Author Organization [facility] Address [address] [place] [address] Support Name Relationship Address Phone JADIEL CHADWICK Emergency Contact [address] [place] [address] MICHAEL CHADWICK Guarantor Unknown [phone] Care Team Providers Care Soil Science Teacher Name Role Phone Savannah Salgado MD Primary Care Provider Igor Post Unavailable [phone] Allergies Allergen (clinical drug ingredient) Drug/Non Drug Allergy documented on EMR Reaction Allergy Type Onset Date Status phenytoin Dilantin Unknown Drug Allergy Active REASON FOR VISIT Patient presents today for a colon screening Medications Medication SIG (Take, Route, Fr equency, Duration) Notes Start Date End Date Status lamoTRIgine Active Carbatrol 200mg bid Acti ve Social History Tobacco Use: Social History Observation Description Date Details (start date - stop date) Never Smoker NA - NA Tobacco Use/Smoking Question Answer Notes Patient is a nonsmoker Alcohol Screen Question Answer Notes Did you have a drink contain ing alcohol in the past year? Yes Points 2 Interpretation Negative How often did you have 6 or more drinks on one occasion in the past year? Never (0 point) How many drinks did you have on a typical day when you were drinking in the past year? 1 or 2 drinks (0 point) How often did you have a dri nk containing alcohol in the past year? 2 to 4 times a month (2 points) Section Notes: Nonsmoker; no alcohol Vital Signs Blood pressure systolic 111 mm Hg 02/18/20 25 Blood pressure diastolic 11 mm Hg 025 Height 61 in 02/17/2025 Weight 183 lbs 02/17/2025 BMI 34.57 kg/m2 02/17/2025 Procedures Procedure Date Ordered Date Performed Result Body Sit e COLONOSCOPY 02/17/2025 N/A Encounters Encounter Location Date Provider Diagnosis [facility] [address] [place] [address] 02/17/2025 Igor Ferraro Colon cancer screeni ng [...] Test Test Name Order Date COLONOSCOPY 02/17/2025 Next Appt Details Follow Up: prn, Reason: Provider Name:Igor Ferraor , 05/20/2025 08:30:00 AM, [address] [place] [address] , [place], [place], [phone], Progress Notes * FARRUKHMICHAELOB:10/20 (64 yo F)Acc No.[id number]:02/17/2025 Progress Notes Patient:MICHAEL MUSA Provider:?Igor Ferraro MD :1960???Age:64 Y???Sex:Female D ate:02/17/2025 Address:[address] [place], [place] [address] Pcp:Savannah Salgado MD Subjective: * Chief Complaints: * ???Patient presents today fo r a colon screening * HPI: ???incontinence:? I saw Michael Cordova in the office today for evaluation of colorectal cancer screening. She was accompanied by her . As you know, Michael Cordova is a 64-year-old female who presently feels well from a GI standpoint. She does describe a longstanding history of some irregular bowel movements with occasional diarrhea. She attributes this to some stress and/or anxiety, as well as some relation to her seizure activity. She denies any hematochezia nor melena. She enjoys a good appetite and denies any significant heartburn or dysphagia. She denies any abdominal pain, jaundice, nor any unintentional weight loss. She denies any known family history of colorectal cancer. She describes a negative colonoscopy at approximately age 51 but without any subsequent exams. Laboratories from last month revealed a hemoglobin of 13.9 with a normal MCV, normal chemistries and renal function, normal iron studies, normal LFTs except for a minimal elevation of the alk phos of 176, normal TSH, and normal B12 and folate levels. * ROS:?General/Constitutional:?Change in appetite?denies.?Chills?denies.?Fatigue?denies.?Ophthalmologic:?Comments?all negative.?ENT:?Comments?all negative.?Respiratory:?hemoptysis?denies.?Cough?denies.?Cardiovascular:?Chest pain?denies.?Orthopnea?denies.?Gastrointestinal:?Comments?See HPI for details.?Genitourinary:?Hematuria?denies.?Dysuria?denies.?Musculoskeletal:?Painful joints?denies.?Weakness?denies.?Skin:?Itching?denies.?Rash?denies.?Neurologic:?Headache?denies.?Seizures?denies.?Psychiatric:?Comments?all negative.? * Medical History:? * Surgical History:?Brain surg ama--at [facility]-put electrodes in the brain to do tests for the epilepsy 06/2011Surgery for seizures-Vagus nerve stimulator in 2000 dec battery replacement Left hip replacement 2022 * Hospitalization/Major Diagno stic Procedure:?No Hospitalization History. * Family History:?Father: dece ased, diagnosed with Heart disease.?Mother: , diagnosed with Diabetes.? no known hx of colon cancer. * Social History:?Tobacco Use:?Tobacco Use/Smoking?Patient is a?nonsmoker.?Drugs/Alcohol:?Alcohol Screen?Did you have a drink containing alcohol in the past year??Yes,?How often did you have 6 or more drinks on one occasion in the past year??Never (0 point),?How many drinks did you have on a typical day when you were drinking in the past year??1 or 2 drinks (0 point),?How often did you have a drink containing alcohol in the past year??2 to 4 times a month (2 points),?Points?2,?Interpretation?Negative.?Miscellaneous:?Marital status: . Occupation: disabled. ???Nonsmoker; no alcohol. * Medications:?TakinglamoTRIgi ne Carbatrol 200mg bid Taking lamoTRIgine Taking Carbatrol 200mg bid DiscontinuedMoviPrep 100 GM Solution Reconstituted as directed Orally as directed Discontinued MoviPrep 100 GM Solution Reconstituted as directed Orally as directed * Allergies:?Dilantinyes[Aller gies Verified] Objective: * Vitals:?Wt: 183 lbs, Ht: 61 in, BMI:34.57Index, BP: 111/11 mm Hg, Wt-k.01. * Examination: ???General Examination: ?GENERAL APPEARANCE:?pleasant, well nourished, well developed, in no acute distress.?EYES:?sclera non-icteric.?ORAL CAVITY:?mucosa moist.?NECK/THYROID:?no cervical lymphadenopathy, neck supple.?SKIN:?nonjaundiced, no spider angiomata.?HEART:?S1, S2 normal.?LUNGS:?clear to auscultation bilaterally.?ABDOMEN:?normal bowel sounds, no guarding or rigidity, no guarding or rigidity, no masses palpable, soft, nontender, nondistended.?EXTREMITIES:?no edema.?NEUROLOGIC:?alert and oriented.? Assessment: * Assessment: 1.?Preprocedural examination - Z01.818 (Primary)???2.?Colon cancer screening - Z12.11??? Overall, Michael Cordova appears well. Given her [...] to keep you advised of her progress. Plan: * Treatment: 2.?Colon cancer screening?Procedure: COLONOSCOPY* with MAC and PAT(Seizures)sc [facility] for 05/20/25 at 8:30 ammiralax * Procedure Codes:?57430 DIAGN OSTIC [id number] RCMND FLW-UP 10 YRS [id number] COLORECTAL CA SCREEN DOC PNE4955D TOBACCO NON-LVLXE1268 BP SCR NOT PRFRM REC REASON NOS * Preventive Medicine:? ??Counseling:?Care goal follow-up plan:?Above Normal BMI Follow-up?Giving encouragement to exercise walks with assistance,?BMI management provided?Yes.? * Follow Up:?prn * * Sign off status: Completed true * Provider:?Igor Ferraro MD Date:? 025 Generated for Sherinei arnold/Sandra/eTransmitting on:?03/27/2025 12:15 PM EDT History and Physical Notes * Examination Category Sub-Category Detail Notes Category Not es General Examination GENERAL APPEARANCE: pleasant , well nourished, well developed, in no acute distress HEAD: EYES: sclera non-icteric EARS: NOSE: THROAT: NECK/THYROID: no cervical lymphade nopathy, neck supple HEART: S1, S2 normal CHEST: LUNGS: clear to auscultatio n bilaterally ABDOMEN: normal bowel sounds, no guarding or rigidity, no guarding or rigidity, no masses palpable, soft, nontender, nondistended NEUROLOGIC: alert and oriented SKIN: nonjaundiced, no spi patrick angiomata EXTREMITIES: no edema PERIPHERAL PULSES: BACK: BREASTS: MUSCULOSKELETAL: MALE GENITOURINARY: LYMPH NODES: RECTAL EXAM: FEMALE GENITOURINARY: ORAL CAVITY: mucosa moist
[2025-05-06 10:08] VITALS: BP 119/71; PULSE 88; RESP 16; O2SAT 95; BMI 34.4
--- NOTE | 2025-05-06 10:48 | HO.ANESPROP2 ---
Documented by User: Giselle Da Silva NP 05/06/25 11:15 HPI - Anesthesia Eval Consult details Narrative: 64yo F for Colonoscopy, 05/20/25 No recent illness No CP/SOB with prehab for knee surgery Epilepsy: Last seizure at time of PAT 05/06/25. Prior to this morning, ~ 3 months ago. Avg 1-2 x per month. Baseline for years. Presents with eye movement, lip smacking, kicking and arm flailing Vagal nerve stim in situ (will bring magnet DOS) - battery change 10/2024. Postop eval by neurosurgery deemed her optimized for total knee arthroplasty. Follows [facility] neuro. Last office visit 12/2024 - stable without changes to current regimen Pt and (Jamie) report he is able to help break seizure with his vocalizations. Will be available in waiting room if pt seizes in preop or PACU PMFSH Active Problems Active Problems: All Active Problems Hyperlipemia (Acute) Status post VNS (vagus nerve stimulator) placement (Acute) Vitamin D deficiency (Acute) Hx of mammogram (Acute) Hx of colonoscopy (Acute) Annual physical exam (Acute) Osteoarthritis of knees, bilateral (Acute) S/P hip replacement (Acute) Seizure (Acute) Past Medical History Medical History Seizures Snores HLD (hyperlipidemia) Osteoarthritis Anxiety Epilepsy Family History Family History Mother Family history of mental disorder Father Prostate CA Surgical History Surgical History History of craniotomy (2010) History of surgery (2000) Hx of colonoscopy (2017) History of total hip replacement (2022) Social History Social History Household Members: Spouse Household Members Other:: [id number] Housing: House Are you a primary in home caregiver to a significant other at home: No Do you presently have visiting nurse or other home services: No Patient Tobacco Use Status: Never used Tobacco e-Cigarette/Vaping Use: Never Used Use of substances other than those prescribed or required for medical reasons: No Have you been hit, kicked, punched, or otherwise hurt by someone within the past year? If so, by whom?: No Are you DNR?: No Advance Directives: No Advance Directives Information Provided: Yes Advance Directives on File: No Healthcare Proxy: No Poor oral hygiene: No service: No Current occupational status: retired Cognitive needs: No Hearing needs: No Vision needs: Yes Meds Allergies Allergy/AdvReac Type Severity Reaction Status Date / Time phenytoin (From Dilantin) AdvReac Mild dry heaving Verified 10/24/24 11:26 Home Medications ?Medication ?Instructions ?Recorded ?Confirmed ?Last Taken ?Type acetaminophen 500 mg tablet 500 mg PO Q6H PRN Pain 10/01/23 05/06/25 Unknown History (Tylenol Extra Strength) carbamazepine 200 mg tablet 200 mg PO BID 10/01/23 05/06/25 Unknown History lamotrigine 200 mg tablet 200 mg PO BID 10/01/23 05/06/25 Unknown History Exam Height,Weight and Vital Signs: Height 5 ft 1 in Weight 82.5 kg Last Vital Signs Pulse 88 05/06/25 10:08 Resp 16 05/06/25 10:08 BP 119/71 05/06/25 10:08 Pulse Ox 95 05/06/25 10:08 O2 Del Method Room Air 05/06/25 10:08 Pertinent Lab Results Pertinent Lab Results: Laboratory Tests 02/02/25 12:50 WBC 5.6 Hgb 13.9 D Hct 42.0 Plt Count 384 Sodium 143 Potassium 4.0 Chloride 108 Carbon Dioxide 26 BUN 8 L Creatinine 0.84 Airway Loose/Missing/Broken Teeth: Yes (molars extracted) Heart: RRR Lungs: CTAB Assessment and Plan Assessment Anesthesia Assessment: Anesthesia Plan Discussed and PAT Visit Documented by User: Charlotte Victoria MD 05/20/25 08:55 PMFSH Past Medical History Medical History Seizures Snores HLD (hyperlipidemia) Osteoarthritis Anxiety Epilepsy Family History Family History Mother Family history of mental disorder Father Prostate CA Family history of problems with anesthesia: No Surgical History Surgical History History of craniotomy (2010) History of surgery (2000) Hx of colonoscopy (2017) History of total hip replacement (2022) History of Problems with Anesthesia: No Social History Social History Household Members: Spouse Household Members Other:: [id number] Housing: House Are you a primary in home caregiver to a significant other at home: No Do you presently have visiting nurse or other home services: No Patient Tobacco Use Status: Never used Tobacco e-Cigarette/Vaping Use: Never Used Use of substances other than those prescribed or required for medical reasons: No Have you been hit, kicked, punched, or otherwise hurt by someone within the past year? If so, by whom?: No Are you DNR?: No Advance Directives: No Advance Directives Information Provided: Yes Advance Directives on File: No Healthcare Proxy: No Poor oral hygiene: No service: No Current occupational status: retired Cognitive needs: No Hearing needs: No Vision needs: Yes Meds Allergies Allergy/AdvReac Type Severity Reaction Status Date / Time phenytoin (From Dilantin) AdvReac Mild dry heaving Verified 10/24/24 11:26 Home Medications ?Medication ?Instructions ?Recorded ?Confirmed ?Last Taken ?Type acetaminophen 500 mg tablet 500 mg PO Q6H PRN Pain 10/01/23 05/06/25 Unknown History (Tylenol Extra Strength) carbamazepine 200 mg tablet 200 mg PO BID 10/01/23 05/06/25 Unknown History lamotrigine 200 mg tablet 200 mg PO BID 10/01/23 05/06/25 Unknown History Exam Airway Mallampati Class: II TM Dist: >3cm Neck ROM: Full Assessment and Plan Final Anesthetic Review Family History of Problems with Anesthesia: No History of Problems with Anesthesia: No NPO: Yes ASA Class: III Final Preanesthetic Review: No Changes in Pt Med Stat, Meds/Allgs Chart Reviewed, Consent Obtained/Reviewed and Anes Risks/Benef Reviewed Patient Risk: Intermediate Procedure Risk: Low Anesthetic Plan Anesthetic Plan: MAC: Disposition: Standard PACU
[2025-05-20 09:34] VITALS: BP 139/79; PULSE 77; RESP 18; TEMP 36.5; O2SAT 9; BMI 33.6
[2025-05-20] MEDS: Lactated Ringers 1,000 ML 100 ML IVCONT (10:05)
[2025-05-20 11:49] VITALS: BP 97/52; PULSE 64; RESP 16; TEMP 36.1; O2SAT 97
--- NOTE | 2025-05-20 11:51 | PM.OP ---
Brief Operative Note Date of Service: 05/20/25 Pre-op diagnosis: Screening Post-op diagnosis: other (Diverticulosis) Procedure: Colonoscopy to the cecum and TI Surgeon: Igor Ferraro MD Anesthesia: MAC Was an Cad Operator used for this Procedure?: No Estimated blood loss (mL): 0 Pathology: none sent Condition: stable Disposition: PACU
[2025-05-20 12:04] VITALS: BP 111/65; PULSE 66; RESP 19; TEMP 36.2; O2SAT 98
--- NOTE | 2025-05-20 21:42 | OP_ITS ---
DATE OF SERVICE: 05/20/2025 SURGEON: Igor Ferraro MD INDICATIONS: The patient presents for evaluation of colorectal cancer screening. Full consent is obtained from her for this, including risks of bleeding and perforation. PREOPERATIVE DIAGNOSIS: Colorectal cancer screening. POSTOPERATIVE DIAGNOSIS: Colorectal cancer screening, diverticulosis and internal hemorrhoids. PROCEDURE PERFORMED: Colonoscopy to the cecum and terminal ileum. ESTIMATED BLOOD LOSS: COMPLICATIONS: ANESTHESIA: Monitored anesthesia care. ASSISTANTS: SPECIMENS: DESCRIPTION OF PROCEDURE: The patient was placed in the left lateral decubitus position. The digital rectal exam revealed no abnormalities. The Olympus video pediatric colonoscope was entered into the rectum and advanced easily to the cecum. Once in the cecum, I did identify normal-appearing cecal pouch with appendiceal orifice and a normal-appearing ileocecal valve. The terminal ileum was cannulated and appeared normal. The scope was withdrawn back in the colon. The entire cecum and ileocecal valve appeared normal. The scope was slowly withdrawn assessing all mucosal surfaces carefully. Preparation was excellent. I did not visualize any sign of polyps, colitis, nor angiodysplasia. There was a mild amount of sigmoid diverticulosis. In the rectum, scope was retroflexed visualizing internal hemorrhoids, but no other pathology. The rectal mucosa appeared normal. Scope was straightened and withdrawn from the patient. She tolerated the procedure well and was returned to the recovery area in stable condition. IMPRESSION: 1. Diverticulosis. 2. Internal hemorrhoids. PLAN: Given the negative exam and negative family history, I would recommend a followup colonoscopy in 10 years for further screening. She will otherwise see me on a p.r.n. basis. MD TRINITY Narayanan/MAJO / [id number]
== END 2025-05-20 12:30 | disposition home or self-care (01) ==
PROVIDERS: PCP Internal Medicine; Visit Provider Internal Medicine
PROC: 0DJD8ZZ Inspection of Lower Intestinal Tract, Via Natural or Artificial Opening Endoscopic (ICD-10-PCS; CPT 45378; principal; 2025-05-20 10:40)
DX: Z12.11 Encounter for screening for malignant neoplasm of colon (principal); K57.30 Diverticulosis of large intestine without perforation or abscess without bleeding; K64.8 Other hemorrhoids; G40.909 Epilepsy, unspecified, not intractable, without status epilepticus; K58.9 Irritable bowel syndrome, unspecified; Z79.899 Other long term (current) drug therapy; Z98.890 Other specified postprocedural states; Z96.642 Presence of left artificial hip joint
CPT/HCPCS: 45378; J2704